=== PATIENT | male | born 1940 | race Caucasian/White ===

== ENCOUNTER 2016-09-09 19:51 | Inpatient (IN) | payer MEDICARE ==
[2016-09-09] MEDS ORDERED: ONDANSETRON HCL 4 MG/2 ML VIAL IV PUSH PRN (21:00)
[2016-09-09] MEDS ORDERED: DEXTROSE 50% IN WATER 50 ML VIAL(D50) IV PUSH PRN (21:00)
[2016-09-09] MEDS ORDERED: GLUCAGON 1 MG/ML VIAL OTHER PRN (21:00)
[2016-09-09] MEDS: INSULIN ASPART SUPPLEMENTAL SCALE SQ SCH (21:00)
--- NOTE | 2016-09-09 21:31 | HHI.HP ---
[facility] Service [facility] . Primary Care Physician not local . Admission Diagnosis Syncope, C2 fracture, intermittent third degree heart block, acute left inferior cerebellar infarct Diagnoses: (1) Syncope and collapse (2) New cerebellar infarct (3) C2 cervical fracture (4) Third degree atrioventricular block (5) Type 2 diabetes mellitus (6) Hyperlipemia (7) Hypertension Chief Complaint: Syncope Travel History International Travel<30 Days: No Contact w/Intl Traveler <30 Da: No Traveled to Known Affected Are: No History of Present Illness Mr. Doty is a pleasant 76-year-old male with a history of type 2 diabetes mellitus (blood sugars checked at home once a week range 130s to 140s), melanoma , hyperlipidemia, and hypertension who is visiting from [place] and was brought to [facility] in [place] on 09/08/2016 after experiencing a syncopal episode. The patient states he was sitting on a kitchen bar stool drinking coffee when he suddenly became diaphoretic and dizzy. He went to get a wet washcloth to put on the back of his neck and that is lasting he remembers. He was estimated to be unconscious for about 30 seconds. Prior to syncope, he denies chest pain, shortness of breath, and nausea. He also denies any weakness in his legs and arms, blurred vision, or headache. At [facility], he was diagnosed with first-degree AV block, intermittent third-degree AV block, and C2 cervical spine fracture and placed in a hard neck brace. See imaging section for full summary of radiological findings from prior hospitalization. Mr. Doty says this morning, he developed numbness on the left side of his face with inability to open his left thigh wide. 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 The patient denies any prior history of CVA, TIA, or heart disease. The patient's only reported at the time of visit is that his neck brace is not fitting well and is interfering with his ability to open and close his mouth. EKG from [facility] reviewed and shows first-degree AV block Laboratory studies from [facility] show mild elevation in white blood count at 10.1 on 09/08/2016 which was likely secondary to stress response. We'll recheck CBC in a.m. BMP not available for review - will check in a.m. - no mention of electrolyte abnormalities in any of the records. Serial Trop I were within normal parameters. Triglycerides 63, cholesterol 1:30, LDL 69, HDL 48, cholesterol/HDL ratio 2.7. . Review of Systems Except as stated in HPI: all other systems reviewed are Neg Past Family Social History Past Medical History Type 2 diabetes mellitus Hyperlipidemia Hypertension Melanoma - removed from right axillary region with negative lymph nodes. . Past Surgical History Hernia repair Bilateral cataract surgery 2016 Right axillary melanoma removal with lymph node dissection . Reported Medications Glimepiride 2 mg every morning Atorvastatin 40 mg by mouth daily Metformin 1000 mg by mouth twice a day Lisinopril 10 mg by mouth daily . Allergies: Coded Allergies: No Known Allergies (Unverified , 09/09/16) Family History Mother with melanoma Father with throat cancer . Social History Tobacco: Quit smoking 28 years ago Alcohol: Drinks an occasional beer . Physical Exam Physical Exam GENERAL: This is an elderly male wearing a hard neck collar patient, in no apparent distress. SKIN: No rashes, ecchymoses or lesions. Cool and dry. HEAD: Normocephalic. EYES: No scleral icterus. No injection or drainage. Inability to completely close left eye. ENT: Nose without bleeding, purulent drainage. NECK: Trachea midline. No JVD or lymphadenopathy. CARDIOVASCULAR: Regular rate and rhythm without murmurs, gallops, or rubs. RESPIRATORY: Clear to auscultation. Breath sounds equal bilaterally. No wheezes , rales, or rhonchi. GASTROINTESTINAL: Abdomen soft, non-tender, nondistended. No guarding. MUSCULOSKELETAL: Extremities without clubbing, cyanosis, or edema. No calf tenderness. NEUROLOGICAL: Awake and alert. Left facial droop. Muscle strength is equal bilaterally in all 4 extremities. . Imaging [facility] CT cervical spine without contrast at [facility] 09/08/2016: C2 fracture involving the right lamina with distraction of the fracture fragments by 5 mm. There is an additional fracture of C2 at the junction of the left pedicle, anterior margin of the lamina, and transverse process with distraction of approximately 5-6 mm. No evidence of canal compromise or subluxation noted. Multilevel degenerative disease and spondylosis most notably at C6 through 7. Multilevel facet arthropathy demonstrated. MRA neck for 11/23/16 at [facility]; proximal right ICA and carotid bulb stenosis with approximately 50% narrowing. The upper cervical portion of the right ICA not well visualized thought to be related to tortuosity and artifact. No significant left ICA stenosis. MRI at [facility], [place] on 09/09/2016: Acute left inferior cerebellar hemisphere infarction extending into the peduncle measuring approximately 4.3 x 3.6 cm without hemorrhagic component or significant mass effect CT head without contrast 09/08/2016: Minimal periventricular and subcortical chronic small vessel ischemic disease demonstrated. No acute intracranial abnormality demonstrated. Chest x-ray 09/08/2016: No evidence for acute cardiopulmonary process. . Assessment and Plan Problem List: (1) Syncope and collapse ICD Code: R55 Status: Acute (2) New cerebellar infarct ICD Code: I63.9 Status: Acute (3) C2 cervical fracture ICD Code: S12.100A Status: Acute (4) Third degree atrioventricular block ICD Code: I44.2 Status: Acute (5) Type 2 diabetes mellitus ICD Code: E11.9 Status: Chronic (6) Hyperlipemia ICD Code: E78.5 Status: Chronic (7) Hypertension ICD Code: I10 Status: Chronic Assessment and Plan Syncope and collapse - work up completed at [facility] in [place] Acute left inferior cerebellar hemisphere infarction extending into the peduncle - measuring approximately 4.3 x 3.6 cm without hemorrhagic component or significant mass effect per MRI at [facility], [place] on 09/09/2016 - Consult ST, PT, and OT - to prevent further debility and start rehabilitation process - Nothing by mouth pending speech therapy swallowing evaluation - Aspirin 300 mg per rectum daily for now - Consult neurology - assistance appreciated - MRA neck for 11/23/16 at [facility]; proximal right ICA and carotid bulb stenosis with approximately 50% narrowing. The upper cervical portion of the right ICA not well visualized thought to be related to tortuosity and artifact. No significant left ICA stenosis. First-degree heart block with intermittent third degree heart block - Obtain echocardiogram results from [facility], [place] - Consult cardiology - assistance appreciated - patient was seen by Dr. Correa at [facility] - Continuous cardiac telemetry C2 fracture - C2 fracture involving the right lamina with distraction of the fracture fragments by 5 mm. There is an additional fracture of C2 at the junction of the left pedicle, anterior margin of the lamina, and transverse process with distraction of approximately 5-6 mm. - Consult neurosurgery - appreciate assistance - Continue with cervical collar - consult orthopedic cast specialist to assist with possible adjustment of neck brace given patient's discomfort with current fit Type 2 diabetes mellitus - Hold glimepiride and metformin for now - Accu-Cheks before meals and at bedtime with low-dose NovoLog sliding scale coverage - Hypoglycemia protocol ordered - Follow trends and blood glucose levels and adjust treatment as needed Hyperlipidemia - Continue atorvastatin Hypertension - Continue lisinopril - Monitor blood pressure trends - Adjust treatment as needed DVT prophylaxis - SCDs Written by Lillian aKpadia, acting as scribe for Dr. Ernandez on 09/09/16 at 21:00. patient was seen and examined today. transfer from [facility] because of cervical spine fracture. initially presented to the hospital after he passed out. was found to have acute CVA along with possible third degree AV block. will consult cardiology, neurology and neurosurgery. will consult PT/ ST. rest of assessment and plan as noted above. . Discussed Condition With Dr. Mcdonnell, RN, and patient . Physician Certification 2 Midnight Certification Type: Admission for Inpatient Services Order for Inpatient Services The services are ordered in accordance with Medicare regulations or non- Medicare payer requirements, as applicable. In the case of services not specified as inpatient-only, they are appropriately provided as inpatient services in accordance with the 2-midnight benchmark. Estimated LOS (days): 3 days is the estimated time the patient will need to remain in the hospital, assuming treatment plan goals are met and no additional complications. Post-Hospital Plan: Not yet determined Problem Qualifiers (1) Type 2 diabetes mellitus: (2) Hypertension: Qualified Code: I10 - Essential hypertension Lillian Kapadia Sep 09, 2016 21:31 Paige Ernandez MD Sep 09, 2016 22:24
[2016-09-09 22:00] VITALS: BP 162/91; PULSE 72; RESP 20; TEMP 98.8; O2SAT 96
[2016-09-09 23:00] VITALS: PULSE 64
[2016-09-10] VITALS (27 sets, daily range): BP systolic 150–208; BP diastolic 82–99; PULSE 40–84; RESP 16–28; TEMP 97.7–98.9; O2SAT 94–97
[2016-09-10 06:58] LABS: AUTOMATED NEUTROPHIL # 7.8 TH/MM3 (1.8-7.7); BASOPHIL # 0.1 TH/MM3 (0-0.2); BASOPHIL % 0.7 % (0.0-2.0); EOSINOPHIL # 0.1 TH/MM3 (0-0.4); EOSINOPHIL % 0.8 % (0.0-4.0); HEMATOCRIT 39.2 % (39.0-51.0); HEMO FLAGS DIFF FINAL; LYMPH % 12.9 % (9.0-44.0); LYMPHOCYTE # 1.3 TH/MM3 (1.0-4.8); MEAN CORPUSCULAR HEMOGLOBIN 29.5 PG (27.0-34.0); MEAN CORPUSCULAR HGB CONC 33.1 % (32.0-36.0); MONO % 9.1 % (0.0-8.0); NEUT % 76.5 % (16.0-70.0); PLATELET COUNT 225 TH/MM3 (150-450); RED CELL DISTRIBUTION WIDTH 14.3 % (11.6-17.2); WHITE BLOOD COUNT 10.2 TH/MM3 (4.0-11.0)
[2016-09-10 07:19] LABS: BICARBONATE 27.4 MEQ/L (21.0-32.0); POTASSIUM 4.2 MEQ/L (3.5-5.1)
[2016-09-10] MEDS: LISINOPRIL 10 MG TAB PO SCH (09:00)
[2016-09-10] MEDS ORDERED: ASPIRIN 300 MG SUPP RECTAL SCH (09:00)
--- NOTE | 2016-09-10 09:06 | PD.CONS ---
HPI Service CV Consult Requested By Reason for Consult arrhythmia Primary Care Physician Non-Staff History of Present Illness Here with HTN and hyperlipidemia admitted for syncope and stroke. He is here visiting from [place]. He was having a cup of coffee on Tuesday at his vacation home when he suddenly became diaphoretic and lightheaded. He decide to get a cold wash cloth for his neck and upon trying to accomplish this he had a syncopal episode. EMS was activated and he was taken to [facility]. There, per EHR, monitoring revealed 1st degree AVB and intermittent CHB. Then he tells me that he had visual disturbances Tuesday night in the hospital and present with stroke. He has no previous cardiac history. Last January he had an arrhythmia after a cataract operation. He states his heart rate was very slow and they gave him something for it and told him it was likely just a blip. He denies chest pain, shortness of breath or palpitations. Telemetry reveals 2nd degree Mobitz 1. (Byron Jean) Consult Requested By [facility] to resume care Patient of Dr. Sunny ngo PPM (Rivera Najera MD) Review of Systems Consitutional: DENIES: Fatigue, Fever, Chills, Weight gain, Weight loss Eyes: DENIES: Amaurosis Fugax, Change in vision HEENT: DENIES: Lightheadedness, Change in hearing Respiratory: DENIES: See HPI, Cough, Snoring, Shortness of breath, Wheezing, Sputum production Cardiovascular: COMPLAINS OF: See HPI Gastrointestinal: DENIES: Nausea, Vomiting, Change in bowel habits, Reflux, Bloody stools, Melena Genitourinary: DENIES: Urinary incontinence, Difficulty voiding Integumentary: DENIES: Rash Neurologic: DENIES: Tingling or numbness, Memory problems, Poor Balance, Stroke symptoms Musculoskeletal: DENIES: Joint pain, Muscle pain, Limited range of motion, Back pain Psychiatric: DENIES: Anxiety, Depression, Sleep disturbances Hematologic: DENIES: Bruising tendencies, Bleeding tendencies Endocrine: DENIES: Weight gain, Weight loss, Thyroid disease (Byron Jean ) Past Family Social History Allergies: Coded Allergies: No Known Allergies (Unverified , 09/09/16) Past Medical History Type 2 diabetes mellitus Hyperlipidemia Hypertension Melanoma - removed from right axillary region with negative lymph nodes. Past Surgical History Hernia repair Bilateral cataract surgery 2016 Right axillary melanoma removal with lymph node dissection Reported Medications Glimepiride 2 mg every morning Atorvastatin 40 mg by mouth daily Metformin 1000 mg by mouth twice a day Lisinopril 10 mg by mouth daily Active Ordered Medications Current Medications Medications (Trade) Dose Ordered Sig/Talha Route Start Time Stop Time Status Last Admin (D50w (Vial) Inj) 25 ml UNSCH PRN IV PUSH 09/09/16 21:00 (Glucagon Inj) 1 mg UNSCH PRN OTHER 09/09/16 21:00 (Aspirin Supp) 300 mg DAILY RECTAL 09/10/16 09:00 (Zofran Inj) 4 mg Q8HR PRN IV PUSH 09/09/16 21:00 (Prinivil) 10 mg DAILY PO 09/10/16 09:00 (Lipitor) 40 mg HS PO 09/10/16 21:00 Family History noncontributory Social History Tobacco: Quit smoking 28 years ago Alcohol: Drinks an occasional beer (Byron Jean) Physical Exam Vital Signs Vital Signs Date Time Temp Pulse Resp B/P Pulse Ox O2 Delivery O2 Flow Rate FiO2 09/10/16 06:07 62 09/10/16 05:00 73 09/10/16 04:00 74 09/10/16 03:18 98.9 63 18 160/90 94 09/10/16 03:00 64 09/10/16 02:35 40 09/10/16 02:00 64 09/10/16 01:00 64 09/10/16 00:00 64 09/10/16 00:00 98.7 62 18 161/84 95 09/09/16 23:00 64 09/09/16 22:00 98.8 72 20 162/91 96 09/09/16 22:00 72 Physical Exam GENERAL: Well-nourished, well-developed patient in no apparent distress. NECK: No JVD. No carotid bruit. CARDIOVASCULAR: Regular rate and rhythm. S1/S2 no murmur, rub, or gallop. RESPIRATORY: No accessory muscle use. Clear to auscultation. Breath sounds equal bilaterally. GASTROINTESTINAL: Abdomen soft, non-tender, nondistended. MUSCULOSKELETAL: Extremities without clubbing, cyanosis, or edema. Laboratory Laboratory Tests Test 09/10/16 05:35 White Blood Count 10.2 Red Blood Count 4.40 Hemoglobin 13.0 Hematocrit 39.2 Mean Corpuscular Volume 89.0 Mean Corpuscular Hemoglobin 29.5 Mean Corpuscular Hemoglobin 33.1 Concent Red Cell Distribution Width 14.3 Platelet Count 225 Mean Platelet Volume 9.1 Neutrophils (%) (Auto) 76.5 Lymphocytes (%) (Auto) 12.9 Monocytes (%) (Auto) 9.1 Eosinophils (%) (Auto) 0.8 Basophils (%) (Auto) 0.7 Neutrophils # (Auto) 7.8 Lymphocytes # (Auto) 1.3 Monocytes # (Auto) 0.9 Eosinophils # (Auto) 0.1 Basophils # (Auto) 0.1 CBC Comment DIFF FINAL Differential Comment Sodium Level 141 Potassium Level 4.2 Chloride Level 107 Carbon Dioxide Level 27.4 Anion Gap 7 Blood Urea Nitrogen 16 Creatinine 0.94 Estimat Glomerular Filtration 78 Rate Random Glucose 130 Calcium Level 8.9 (Byron Jean) Result Diagram: 09/10/16 0535 09/10/16 0535 Assessment and Plan Problem List: (1) Syncope and collapse (2) Hyperlipemia (3) Hypertension (4) New cerebellar infarct Assessment and Plan With his arrhythmia and stroke we will need to r/o cardioembolic source. 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 We will continue to monitor telemetry and await 2D echo results from [place]. We will allow permissive HTN for now. Avoid AVN blocking agent and heart rate lowering drugs. Further recommendations per Dr. Najera. (Byron Jean) Problem Qualifiers (1) Hypertension: Qualified Code: I10 - Essential hypertension Byron Jean Sep 10, 2016 09:06 Rivera Najera MD Sep 10, 2016 12:46
[2016-09-10] MEDS ORDERED: IOHEXOL 350 MG/ML 10 ML VIAL (for RAD DIAG) IV ONE (11:18)
--- NOTE | 2016-09-10 11:18 | RADRPT ---
EXAM DATE/TIME: 09/10/2016 10:54 [facility] COMPARISON: No previous studies available for comparison. INDICATIONS : Cerebellar stroke follow up. RADIATION DOSE: 69.15 CTDIvol (mGy) MEDICAL HISTORY : None SURGICAL HISTORY : None. ENCOUNTER: Initial ACUITY: 1 day PAIN SCALE: 0/10 LOCATION: cranial TECHNIQUE: Multiple contiguous axial images were obtained of the head. Using automated exposure control and adj ustment of the mA and/or kV according to patient size, radiation dose was kept as low as reasonably a chievable to obtain optimal diagnostic quality images. FINDINGS: CEREBRUM: The ventricles are normal for age. No evidence of midline shift, mass lesion, hemorrhage or acute in farction. No extra-axial fluid collections are seen. POSTERIOR FOSSA: The examination demonstrates a moderate-sized area of infarct involving the left cerebellar hemispher e. This is encephalomalacic and appears somewhat old. There is no acute hemorrhage. EXTRACRANIAL: The visualized portion of the orbits is intact. SKULL: The calvaria is intact. No evidence of skull fracture. CONCLUSION: 1. Encephalomalacic infarct in the left cerebellar hemisphere. 2. No acute intracranial hemorrhage identified. Kumar Briceño MD on September 10, 2016 at 11:15 Board Certified Radiologist. This report was verified electronically.
--- NOTE | 2016-09-10 12:05 | RADRPT ---
EXAM DATE/TIME: 09/10/2016 11:05 [facility] COMPARISON: CT BRAIN W/O CONTRAST, September 10, 2016, 10:54. INDICATIONS : Fall, cervical fracture. RADIATION DOSE: ; Reconstructed from previous dataset MEDICAL HISTORY : None SURGICAL HISTORY : None. ENCOUNTER: Initial ACUITY: 1 day PAIN SCALE: 5/10 LOCATION: neck TECHNIQUE: Volumetric scanning of the cervical spine was performed. Multiplanar reconstructions in the sagittal, coronal and oblique axial planes were performed. Using automated exposure control and adjustment o f the mA and/or kV according to patient size, radiation dose was kept as low as reasonably achievable to obtain optimal diagnostic quality images. FINDINGS: Thin section axial imaging of the cervical spine was performed. The sagittal and coronal reformats de monstrate adequate alignment of the cervical vertebral bodies. The patient's known fracture of the la kristian of C2 is again visualized. Sagittal and coronal imaging demonstrate adequate alignment of the vertebral bodies. C1/2: The dens is intact. The examination does demonstrate fracture of the lamina posteriorly on both sides . There is only minimal displacement. The vertebral body itself appears intact. The C2/3: The thecal space is adequate. The foramina are adequate. Again noted is a fracture posteriorly of the lamina of C2. There is mild facet arthritis bilaterally. C3/4: There is moderate facet arthritis on the right. There is mild facet arthritis on the left. There is m ild bony foraminal narrowing on the right. The foramina on the left is adequate. The residual thecal space is adequate. C4/5: There is severe facet arthritis bilaterally. This is more significant on the right than the left. Thi s results in moderate narrowing of the neural foramina on the right. There is mild foraminal narrowin g on the left. Residual thecal space is adequate. C5/6: There is a degenerated disc with mild osteophytic ridging. There is facet arthritis bilaterally. The thecal space and foramina appear adequate. C6/7: There is a degenerated disc with osteophytic ridging from the vertebral endplates. The thecal space a nd foramina are adequate. The facet joints demonstrate mild arthritic changes. C7/T1: No significant abnormality is identified. CONCLUSION: 1. The examination demonstrates a fracture of both sides of the lamina of C2. The vertebral body itse lf appears intact. 2. CT angiography to assess the left vertebral artery is pending. Kumar Briceño MD on September 10, 2016 at 11:58 Board Certified Radiologist. This report was verified electronically.
[2016-09-10] MEDS: INSULIN ASPART SUPPLEMENTAL SCALE SQ SCH ×4 (12:19→21:00)
--- NOTE | 2016-09-10 13:09 | RADRPT ---
EXAM DATE/TIME: 09/10/2016 10:57 [facility] COMPARISON: CT BRAIN W/O CONTRAST, September 10, 2016, 10:54. INDICATIONS : Cerebellar stroke, cervical fracture. Evaluate for vertebral artery injury. IV CONTRAST: 100 cc Omnipaque 350 (iohexol) IV RADIATION DOSE: 19.56 CTDIvol (mGy) MEDICAL HISTORY : None SURGICAL HISTORY : None. ENCOUNTER: Initial ACUITY: 1 day PAIN SCALE: 0/10 LOCATION: Bilateral neck Elevated flow velocities and ICA/CCA ratios have been found to correlate with increased degrees of vessel stenosis, calculated as percentage of diameter relative to a normal segment of distal ICA/CCA. TECHNIQUE: Volumetric scanning was performed using a multirow detector CT scanner. The data was post processed with a variety of visualization algorithms including full-volume maximum intensity projection, multip lanar sliding thin-slab reformation, curved-planar reformation, and surface-rendering techniques. Us ing automated exposure control and adjustment of the mA and/or kV according to patient size, radiatio n dose was kept as low as reasonably achievable to obtain optimal diagnostic quality images. FINDINGS: AORTIC ARCH: There is a three-vessel origin of the great vessels from the aorta. No evidence of ostial narrowing. RIGHT CAROTID: The common carotid is widely patent. There is mild atherosclerotic plaquing at the bifurcation. This results in an area of mild stenosis of the origin of the right internal carotid estimated to be in th e range of 10-15% by NASCET criteria. The more cephalad portion of internal carotid is widely patent. LEFT CAROTID: The common carotid is widely patent. There is calcified atherosclerotic plaque at the bifurcation. Th is results in only minimal stenosis of the origin of the left internal carotid. The more cephalad por tion of left internal carotid is widely patent. VERTEBRALS: The examination demonstrates a focal area of intimal contusion and a small amount of intraluminal thr ombus within the left vertebral artery at the level of the patient's C2 lamina fracture. The more cep halad portions of vertebral artery demonstrate thrombus within it.. There is a subacute infarct in th e left cerebellar hemisphere. The right vertebral artery is widely patent. The basilar is widely dang nt.CONCLUSION: 1. There is focal intimal contusion and a small amount of thrombus within the left vertebral artery a t the level of the patient's C2 lamina fracture. The more cephalad portion of left vertebral just kinjal or to its junction with the basilar demonstrates thrombus within it as well as no definite dissection is seen. There is infarct in the left cerebellar hemisphere. 2. The right vertebral and basilar are patent. 3. Atherosclerotic plaquing but no hemodynamically significant stenosis evident within the carotid ci rculation. Kumar Briceño MD on September 10, 2016 at 13:01 Board Certified Radiologist. This report was verified electronically.
[2016-09-10 13:17] LABS: HDL CHOLESTEROL 48.8 MG/DL (40.0-60.0)
[2016-09-10] MEDS: niCARdipine 25 MG/NS 250 ML Vial2Bag or IV room IV SCH ×4 (13:21→23:19)
--- NOTE | 2016-09-10 17:33 | MB ---
cc: KRISTEN SUNG M.D. DATE OF CONSULTATION 09/10/16 DATE OF 1940 AGE [id number]. REASON FOR CONSULTATION Stroke. HISTORY OF PRESENT ILLNESS The patient is a pleasant 76-year-old man visiting from [place] on vacation with a diabetic history, melanoma, hyperlipidemia, hypertension, was brought into initially [facility] on 09/08/2016 after he had what was noted to be a syncope per chart. He was apparently sitting in the kitchen, drinking coffee when he became diaphoretic and dizzy. Apparently went to put a washcloth on the back of his neck and that is the last thing he can remember. He was unresponsive for less than a minute per chart. Prior to that he had no prodromal symptoms. At the hospital he was diagnosed with a first-degree AV block intermittent third degree block. CT spine fracture, placed in a hard neck brace and transferred. The patient just had a follow-up CT of the brain as well as CT cervical spine. Studies that were performed at [facility] apparently he had a CT spine that showed the C2 fracture. Also MRA of the neck showed proximal ICA and carotid bulb stenosis about 50% narrowing. Upper cervical portion of the right ICA was not well seen, tortuous and artifactual. No significant left ICA stenosis. MRI at the same time showed acute left inferior cerebellar hemisphere infarct, 4.3 x 3.6 without hemorrhage or any mass effect. CT of the head did not show anything acute. Chest x-ray no cardiopulmonary disease. PAST MEDICAL HISTORY He has a past medical history of diabetes, hypertension, hyperlipidemia, melanoma, cataract surgery, hernia repair. The melanoma was in the right axillary area with node dissection. MEDICATIONS Home medicines are: 1. Glimepiride. 2. Atorvastatin. 3. Metformin. 4. Lisinopril. He does not take aspirin. ALLERGIES None reported. FAMILY HISTORY Melanoma in the mother. Throat cancer in the father. SOCIAL HISTORY He quit smoking 28 years ago. Drinks beer on occasion. PHYSICAL EXAMINATION VITAL SIGNS: On exam vitals temperature is 97.7, pulse 59, respiratory rate 18, blood pressure 208/87, prior to that 190/99. NECK: His neck is supple. I do not appreciate any bruits. HEART: Currently is regular. NEURO: He is awake and alert. He is dysarthric. He has a left ptosis, diplopia of the left eye. End-gaze nystagmus of the left eye. He has his left eye covered. He has a left facial asymmetry. He has a dysmetria on the left side on [id number] and [id number]. Left toe is upgoing. DTRs are 1 to 2+, right side is intact. Sensory is normal. Gait is withheld. LABORATORY DATA His labs are reviewed. IMAGING STUDIES He just had a CT of the head that shows encephalomalacia or infarct in the left cerebellar hemisphere and CT cervical spine shows fracture of both sides of the lamina of C2. The vertebral body itself appears intact. He is pending a CTA of the carotid to look at the left vertebral artery, rule out dissection. IMPRESSION 1. C2 fracture. 2. Left cerebellar infarct. RECOMMENDATIONS CTA of the carotids, look for dissection of the vertebral artery. Maintain permissible hypertension, treat for systolic over 200, diastolic over 100 without lowering him too low to have him have adequate perfusion pressure. Maintain him on aspirin. Speech PT, OT, check a lipid panel, although we want PT involved I would not get him out of bed until he is cleared by neurosurgery. Bedside PT can be done. Lovenox for DVT prophylaxis. SCDs and further recommendations neurologically will be made accordingly. MD DINORA Valencia/MARK /12:40 PM /5:19 PM
--- NOTE | 2016-09-10 18:45 | MB ---
cc: KUMAR HU DATE OF CONSULTATION 09/10/16 REASON FOR CONSULTATION: C2 fractures. PRESENT ILLNESS A 76-year-old gentleman who had a syncopal episode two days ago and fell and hit his head. He was taken to [facility] emergency room and admitted. He was found to have C2 fractures and was placed in a collar and was also bradycardic with from what the twisting press operator informs me from [facility] a third degree block and was contemplating needing pacemaker at some point. He had developed nystagmus and left-sided facial droop yesterday morning along with unsteadiness in his gait and neurology evaluated the patient and workup with an MRI scan revealed left cerebellar hemisphere infarct. For some reason, the patient was not accepted by the neurosurgery staff at [facility] and he was sent to [facility] for further management. He relates neck discomfort, but with the collar this is better. Denies any numbness or paresthesias in the face, arms or legs. He has had a left facial droop along with a left eye droop and feels lightheaded and unsteady when attempting to walk. Denies any previous syncopal episodes or any cardiac issues. Workup included a head CT scan this morning that reveals a left hemisphere multifocal cerebellar infarct with no edema or compression of the fourth ventricle or any associated hydrocephalus. CT of the cervical spine reveals a fracture involving the left facet/pedicle on the right lamina with maintained alignment of C1, C2, C3 with no subluxation noted. CT angiogram of the neck to assess for any vertebral artery dissection or thrombus is currently pending. PAST MEDICAL HISTORY 1. Diabetes mellitus, 2. Hypertension, 3. Hyperlipidemia, 4. Melanoma from resection of the right axillary with negative lymph nodes, 5. Bilateral cataract surgery in 2016, 6. Herniorrhaphy MEDICATIONS Prior to admission 1. Atorvastatin. 2. Metformin. 3. Lisinopril. 4. Glyburide 5. Currently been started on aspirin 300 mg a day. 6. He was hypertensive with a systolic blood pressure 208 and has been started on Cardene drip to regulate the blood pressure to keep it less than 180-190 systolic. ALLERGIES NO KNOWN DRUG ALLERGIES. SOCIAL HISTORY He is . His is here with him. They are on vacation from [place], scheduled to go back home this weekend originally. Quit smoking 28 years ago. Drinks alcohol on occasional basis. REVIEW OF SYSTEMS Complains of double vision when looking straight, complains of left-sided facial droop, complains of neck pain. Denies any numbness or paresthesias in the upper or lower extremities or the face. Complains of unsteadiness in his gait. No incontinence. No chest pain or shortness of breath. No abdominal pain. No fevers or chills. No recent weight gain or weight loss. No history of easy bleeding or bruising. No prior history of passing out spells or syncopal episodes prior to the current one. LABORATORY DATA White blood cell count 10.2, hemoglobin 13, platelet count 225. Sodium 141, potassium 4.2, BUN 16, creatinine 0.94, glucose 130. PHYSICAL EXAMINATION VITAL SIGNS: Temperature 97.7, pulse 59, respiratory rate 18, blood pressure currently 190/89 on Cardene drip. HEAD: No [employer] or raccoon sign. NECK: Maintained in a Cantwell J collar. CHEST: Clear bilaterally HEART: Regular rate and rhythm, normal S1, S2. ABDOMEN: Soft, nontender. EXTREMITIES: No cyanosis or edema. NEUROLOGIC: He is awake, alert. He has a left lower motor neuron seventh nerve paresis. Pupils are equal, reactive. He has nystagmus, especially on left lateral gaze. Tongue is midline. He moves upper and lower extremities with 5/5 strength. Negative Babinski. He does have dysmetria left-sided. Light touch sensation intact. Speech is very dysarthric. IMPRESSION 1. C2 left facet/pedicle fracture along with a right laminar fracture with maintained alignment. 2. Left cerebellar hemisphere infarct, rule out any vertebral artery dissection or stenosis. 3. Bradycardia likely the source of his syncopal episode and fall. 4. Diabetes mellitus. 5. Unregulated hypertension. PLAN The patient will be transferred to the surgical intensive care unit for close neurologic hemodynamic monitoring and regulation of his hypertension. Regarding the cervical C2 fractures, this will heal without requiring any intervention with a cervical collar used for the next 3-4 months. RECOMMENDATIONS Cervical spine x-rays every six weeks to assess for fracture healing and cervical spine alignment. I will defer management of the cerebellar infarct and any associated vertebral artery involvement to the neurology service. I have discussed with Dr. Burks from neurology and she informs me that there is a left vertebral stenosis or dissection noted and she will initiate full anticoagulation initially with heparin drip. Speech therapy evaluation for swallowing and physical and occupational therapy to work on rehabilitation given his unsteadiness in his gait. The informs me that once he is medically stable then she wants to take him back home in [place] where they will follow up with a local neurosurgeon and other specialists as needed. MD PAPA Covarrubias/ /1:28 PM /6:17 PM
[2016-09-10] MEDS: ACETAMINOPHEN 325 MG TAB PO PRN (19:17)
[2016-09-10] MEDS: ATORVASTATIN 40 MG TAB PO SCH (20:30)
[2016-09-10] MEDS ORDERED: SODIUM CHLOR 0.9% 250 ML INJ 250 ML ONE (22:22)
[2016-09-11] VITALS (23 sets, daily range): BP systolic 136–183; BP diastolic 75–98; PULSE 57–88; RESP 16–20; TEMP 97.8–98; O2SAT 95–98
--- NOTE | 2016-09-11 00:01 | HHI.PR ---
Subjective Remarks Patient seen at 1635. Doing OK, overall pain controlled. Objective Vitals Vital Signs Date Time Temp Pulse Resp B/P Pulse Ox O2 Delivery O2 Flow Rate FiO2 09/10/16 22:00 70 09/10/16 21:00 72 09/10/16 20:00 72 09/10/16 20:00 97.7 72 28 150/82 96 09/10/16 19:00 78 09/10/16 18:00 79 09/10/16 17:00 74 09/10/16 16:00 69 09/10/16 16:00 98.7 69 21 161/84 95 09/10/16 15:00 64 09/10/16 14:00 60 09/10/16 13:00 74 09/10/16 12:00 59 09/10/16 12:00 97.7 59 18 208/87 95 09/10/16 11:00 59 09/10/16 10:00 74 09/10/16 09:00 84 09/10/16 08:15 98.5 74 16 190/99 97 09/10/16 08:00 64 09/10/16 07:00 66 09/10/16 06:07 62 09/10/16 05:00 73 09/10/16 04:00 74 09/10/16 03:18 98.9 63 18 160/90 94 09/10/16 03:00 64 09/10/16 02:35 40 09/10/16 02:00 64 09/10/16 01:00 64 09/10/16 00:00 64 09/10/16 00:00 98.7 62 18 161/84 95 I/O 09/09/16 09/09/16 09/09/16 09/10/16 09/10/16 09/10/16 06:59 14:59 22:59 06:59 14:59 22:59 Intake Total 0 ml 168 ml Output Total 0 ml 575 ml Balance 0 ml -407 ml Intake Oral 0 ml 40 ml IV Total 128 ml Output Urine Total 0 ml 575 ml # Bowel Movements 0 0 Result Diagram: 09/10/16 0535 09/10/16 0535 Objective Remarks GENERAL: This is a well-nourished, well-developed patient, in no apparent distress. NECK: C collar CARDIOVASCULAR: Regular rate and rhythm RESPIRATORY: Clear to auscultation. Breath sounds equal bilaterally. No wheezes , rales, or rhonchi. GASTROINTESTINAL: Abdomen soft, non-tender, nondistended. Normal active bowel sounds MUSCULOSKELETAL: Extremities without clubbing, cyanosis, or edema. NEURO: Alert & Oriented x3 to person, place, time. Moves all ext x4 with 5/5 BUE, BLE A/P Problem List: (1) Syncope and collapse ICD Code: R55 Status: Acute (2) New cerebellar infarct ICD Code: I63.9 Status: Acute (3) C2 cervical fracture ICD Code: S12.100A Status: Acute (4) Third degree atrioventricular block ICD Code: I44.2 Status: Acute (5) Type 2 diabetes mellitus ICD Code: E11.9 Status: Chronic (6) Hyperlipemia ICD Code: E78.5 Status: Chronic (7) Hypertension ICD Code: I10 Status: Chronic Assessment and Plan Syncope and collapse - work up completed at [facility] in [facility], and transfered to [place] by for Neurosurgery evaluation of cervical fracture Acute left inferior cerebellar hemisphere infarction extending into the peduncle - measuring approximately 4.3 x 3.6 cm without hemorrhagic component or significant mass effect per MRI at [facility] on 09/09/2016 - Consult ST, PT, and OT - to prevent further debility and start rehabilitation process - Aspirin 300 mg per rectum daily for now - Further recommendations per neurology, check FLP - MRA neck for 11/23/16 at [facility]; proximal right ICA and carotid bulb stenosis with approximately 50% narrowing. The upper cervical portion of the right ICA not well visualized thought to be related to tortuosity and artifact. No significant left ICA stenosis. First-degree heart block with intermittent third degree heart block - Obtain echocardiogram results from [facility] - Consult cardiology - assistance appreciated - patient was seen by Dr. Correa at [facility] - Continuous cardiac telemetry, further recommendations per Cardiology C2 fracture - C2 fracture involving the right lamina with distraction of the fracture fragments by 5 mm. There is an additional fracture of C2 at the junction of the left pedicle, anterior margin of the lamina, and transverse process with distraction of approximately 5-6 mm. - Appreciate Neurosurgery consult and recommendations - Continue with cervical collar - consult rn orthopaedic to assist with possible adjustment of neck brace given patient's discomfort with current fit Type 2 diabetes mellitus - Hold glimepiride and metformin for now - Accu-Cheks before meals and at bedtime with low-dose NovoLog sliding scale coverage - Hypoglycemia protocol ordered - Follow trends and blood glucose levels and adjust treatment as needed Hyperlipidemia - Continue atorvastatin, check FLP Hypertension, accelerated - Continue lisinopril, Nicardipine drip started by Neurosurgery - Monitor blood pressure trends - Adjust treatment as needed DVT prophylaxis - SCDs Problem Qualifiers (1) Type 2 diabetes mellitus: (2) Hypertension: Qualified Code: I10 - Essential hypertension Janna Mcdonnell MD Sep 11, 2016 00:01
[2016-09-11] MEDS: INSULIN ASPART SUPPLEMENTAL SCALE SQ SCH ×4 (06:55→21:00)
[2016-09-11] MEDS: LISINOPRIL 10 MG TAB PO SCH (08:40)
--- NOTE | 2016-09-11 09:47 | HHI.PR ---
Subjective Remarks Patient continues to be on bedrest. Denies having fever, chills, chest pain, shortness of breath, abdominal pain. Patient in no pain at all. No bowel movement. Objective Vitals Vital Signs Date Time Temp Pulse Resp B/P Pulse Ox O2 Delivery O2 Flow Rate FiO2 09/11/16 09:00 74 09/11/16 08:00 59 09/11/16 08:00 97.8 76 20 171/98 09/11/16 07:00 71 09/11/16 06:00 69 09/11/16 05:00 66 09/11/16 04:00 80 09/11/16 04:00 97.8 80 16 149/77 98 09/11/16 03:00 68 09/11/16 02:00 72 09/11/16 01:00 66 09/11/16 00:00 68 09/11/16 00:00 97.8 68 19 136/75 98 09/10/16 23:00 68 09/10/16 22:00 70 09/10/16 21:00 72 09/10/16 20:00 72 09/10/16 20:00 97.7 72 28 150/82 96 09/10/16 19:00 78 09/10/16 18:00 79 09/10/16 17:00 74 09/10/16 16:00 69 09/10/16 16:00 98.7 69 21 161/84 95 09/10/16 15:00 64 09/10/16 14:00 60 09/10/16 13:00 74 09/10/16 12:00 59 09/10/16 12:00 97.7 59 18 208/87 95 09/10/16 11:00 59 09/10/16 10:00 74 I/O 09/10/16 09/10/16 09/10/16 09/11/16 09/11/16 09/11/16 07:00 15:00 23:00 07:00 15:00 23:00 Intake Total 0 ml 168 ml 91 ml Output Total 0 ml 575 ml 400 ml Balance 0 ml -407 ml -309 ml Intake Oral 0 ml 40 ml 40 ml IV Total 128 ml 51 ml Output Urine Total 0 ml 575 ml 400 ml # Bowel Movements 0 0 0 Result Diagram: 09/10/16 0535 09/10/16 0535 Objective Remarks GENERAL: This is a well-nourished, well-developed patient, in no apparent distress. NECK: C collar in place. CARDIOVASCULAR: Regular rate and rhythm RESPIRATORY: Clear to auscultation. Breath sounds equal bilaterally. No wheezes , rales, or rhonchi. GASTROINTESTINAL: Abdomen soft, non-tender, nondistended. Normal active bowel sounds MUSCULOSKELETAL: Extremities without clubbing, cyanosis, or edema. NEURO: Alert & Oriented x3 to person, place, time. Moves all ext x4 with 5/5 steng in extremities x 4. Normal cerebellar testing. Urinary Catheter: Yes Assessment to: Continue Vascular Central Line Catheter: No A/P Problem List: (1) Syncope and collapse ICD Code: R55 Status: Acute (2) New cerebellar infarct ICD Code: I63.9 Status: Acute (3) C2 cervical fracture ICD Code: S12.100A Status: Acute (4) Third degree atrioventricular block ICD Code: I44.2 Status: Acute (5) Type 2 diabetes mellitus ICD Code: E11.9 Status: Chronic (6) Hyperlipemia ICD Code: E78.5 Status: Chronic (7) Hypertension ICD Code: I10 Status: Chronic Assessment and Plan Patient is 76 yo M, on vacation from [place], transferred from [facility] after syncopal episode, found to have first degree AV block, intermittent third-degree AV block, C2 cervical spine fracture. Syncope and collapse - work up completed at [facility] in [facility], and transferred to [place] by for Neurosurgery evaluation of cervical fracture Acute left inferior cerebellar hemisphere infarction extending into the peduncle. Measuring approximately 4.3 x 3.6 cm without hemorrhagic component or significant mass effect per MRI at [facility] on 09/09/2016 - Consult ST, PT, and OT - Aspirin 325 mg daily - Further recommendations per neurology: continued permissible hypertension to maintain perfusion - MRA neck for 11/23/16 at [facility]; proximal right ICA and carotid bulb stenosis with approximately 50% narrowing. The upper cervical portion of the right ICA not well visualized thought to be related to tortuosity and artifact. No significant left ICA stenosis. First-degree heart block with intermittent third degree heart block - Obtain echocardiogram results from [facility] - Consult cardiology - assistance appreciated - patient was seen by Dr. Correa at [facility] - Continuous cardiac telemetry, further recommendations per Cardiology C2 fracture - C2 fracture involving the right lamina with distraction of the fracture fragments by 5 mm. There is an additional fracture of C2 at the junction of the left pedicle, anterior margin of the lamina, and transverse process with distraction of approximately 5-6 mm. - Appreciate Neurosurgery consult and recommendations - Continue with cervical collar - Per NS, patient will require C-spine x-rays every 6 weeks to monitor healing Type 2 diabetes mellitus - Hold glimepiride and metformin for now - Accu-Cheks before meals and at bedtime with low-dose NovoLog sliding scale coverage - No supplemental insulin requirement over past 24 hours, well-controlled - Follow trends and blood glucose levels and adjust treatment as needed versus discontinue Accu-Cheks Hyperlipidemia. Total cholesterol 134, LDL 65; well-controlled hyperlipidemia - Continue atorvastatin. Hypertension, permissive hypertension per neurology - Continue lisinopril, Nicardipine drip started by Neurosurgery - Monitor blood pressure trends -Blood pressure control per neurology DVT prophylaxis - SCDs, Lovenox Diet: passed swallow eval, diabetic diet Pericolace 2 tabs hs Discharge Planning pending neurology clearance; would like to take patient back to [place] upon dc Problem Qualifiers (1) Type 2 diabetes mellitus: (2) Hypertension: Qualified Code: I10 - Essential hypertension Lorie Bradley MD Sep 11, 2016 09:47
[2016-09-11] MEDS: ASPIRIN 325 MG TAB PO SCH (10:24)
[2016-09-11] MEDS: ATORVASTATIN 40 MG TAB PO SCH (20:22)
[2016-09-11] MEDS ORDERED: DOCUSATE SODIUM 50 MG/SENNA 8.6 MG TAB PO SCH (21:00)
--- NOTE | 2016-09-11 23:49 | HHI.NSPN ---
History Chief Complaint: I want to shave my sanchez Interval History 76-year-old male with recent syncopal episode and collapse resulting in C2 fracture with small amount of thrombus unilaterally in the vertebral artery at the C2 fracture site was secondary cerebellar CVA. History of hypertension, third-degree AV block Exam Results Vital Signs Date Time Temp Pulse Resp B/P Pulse Ox O2 Delivery O2 Flow Rate FiO2 09/11/16 23:00 64 09/11/16 20:00 97.8 18 162/94 96 Intake and Output 09/10/16 09/10/16 09/11/16 08:00 16:00 00:00 Intake Total 0 ml 168 ml Output Total 0 ml 575 ml Balance 0 ml -407 ml Physical Examination Awake and alert Oriented and conversant May have diminished judgment and insight Answer simple questions appropriately and follows simple commands well Left facial paresis Disconjugate gaze with complaint of diplopia Patch over the left eye Cervical collar in place No significant neck tenderness Appears to have diminished coordination left lower extremity Lab, Micro, Other Results Last Impressions Neck CTA 09/10/16 0000 Signed Impressions: Service Date/Time: Saturday, September 10, 2016 10:57 - CONCLUSION: 1. There is focal intimal contusion and a small amount of thrombus within the left vertebral artery at the level of the patient's C2 lamina fracture. The more cephalad portion of left vertebral just prior to its junction with the basilar demonstrates thrombus within it as well as no definite dissection is seen. There is infarct in the left cerebellar hemisphere. 2. The right vertebral and basilar are patent. 3. Atherosclerotic plaquing but no hemodynamically significant stenosis evident within the carotid circulation. Kumar Briceño MD Head CT 09/10/16 0000 Signed Impressions: Service Date/Time: Saturday, September 10, 2016 10:54 - CONCLUSION: 1. Encephalomalacic infarct in the left cerebellar hemisphere. 2. No acute intracranial hemorrhage identified. Kumar Briceño MD Cervical Spine CT 09/10/16 0000 Signed Impressions: Service Date/Time: Saturday, September 10, 2016 11:05 - CONCLUSION: 1. The examination demonstrates a fracture of both sides of the lamina of C2. The vertebral body itself appears intact. 2. CT angiography to assess the left vertebral artery is pending. Kumar Briceño MD Medical Decision Making Impression and Plan Impression: 1. C2 bilateral laminar fracture-stable 2. 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 Hypertension 4. Third-degree AV block history Plan: Discussed with patient Discussed with nursing staff Continue cervical collar May mobilize out of bed with assistance from neurosurgical standpoint Mikhail Rodgers MD Sep 11, 2016 23:49
[2016-09-12] VITALS (24 sets, daily range): BP systolic 125–188; BP diastolic 64–93; PULSE 64–100; RESP 18–22; TEMP 97.8–98.2; O2SAT 97–100
[2016-09-12] MEDS: INSULIN ASPART SUPPLEMENTAL SCALE SQ SCH ×4 (05:50→20:33)
--- NOTE | 2016-09-12 07:38 | HHI.PR ---
Subjective Remarks No acute events overnight. Afebrile, vital signs stable. Hypertensive 1 to 188/84. Patient complains of weakness this morning. Also states he has pain in the back of his neck and thinks his cervical collar is too tight. Objective Vitals Vital Signs Date Time Temp Pulse Resp B/P Pulse Ox O2 Delivery O2 Flow Rate FiO2 09/12/16 06:00 69 09/12/16 05:00 79 09/12/16 04:00 66 09/12/16 04:00 98.0 65 18 188/84 100 09/12/16 03:00 69 09/12/16 00:00 97.8 66 18 125/64 98 09/12/16 00:00 66 09/11/16 23:00 64 09/11/16 22:00 78 09/11/16 20:00 97.8 72 18 162/94 96 09/11/16 20:00 84 09/11/16 19:00 82 09/11/16 18:00 88 09/11/16 17:06 87 09/11/16 16:00 57 09/11/16 16:00 98.0 66 18 179/90 95 09/11/16 15:00 81 09/11/16 14:00 80 09/11/16 13:00 72 09/11/16 12:29 68 09/11/16 12:00 97.9 71 18 183/95 96 09/11/16 10:00 75 09/11/16 09:00 74 09/11/16 08:00 59 09/11/16 08:00 97.8 76 20 171/98 I/O 09/11/16 09/11/16 09/11/16 09/12/16 09/12/16 09/12/16 07:00 15:00 23:00 07:00 15:00 23:00 Intake Total 91 ml 300 ml 680 ml 240 ml Output Total 400 ml 850 ml 500 ml 500 ml Balance -309 ml -550 ml 180 ml -260 ml Intake Oral 40 ml 300 ml 680 ml 240 ml IV Total 51 ml 0 ml 0 ml Output Urine Total 400 ml 850 ml 500 ml 500 ml # Bowel Movements 0 0 0 Result Diagram: 09/10/16 0535 09/10/16 0535 Imaging GENERAL: This is a well-nourished, well-developed patient, in no apparent distress. NECK: C collar in place. CARDIOVASCULAR: Regular rate and rhythm RESPIRATORY: Clear to auscultation. Breath sounds equal bilaterally. No wheezes , rales, or rhonchi. GASTROINTESTINAL: Abdomen soft, non-tender, nondistended. Normal active bowel sounds MUSCULOSKELETAL: Extremities without clubbing, cyanosis, or edema. NEURO: Alert & Oriented x3 to person, place, time. Moves all ext x4 with 5/5 strength in extremities x 4. A/P Problem List: (1) Syncope and collapse ICD Code: R55 Status: Acute (2) New cerebellar infarct ICD Code: I63.9 Status: Acute (3) C2 cervical fracture ICD Code: S12.100A Status: Acute (4) Third degree atrioventricular block ICD Code: I44.2 Status: Acute (5) Type 2 diabetes mellitus ICD Code: E11.9 Status: Chronic (6) Hyperlipemia ICD Code: E78.5 Status: Chronic (7) Hypertension ICD Code: I10 Status: Chronic Assessment and Plan Patient is 76 yo M, on vacation from [place], transferred from [facility] after syncopal episode, found to have first degree AV block, intermittent third-degree AV block, C2 cervical spine fracture. Syncope and collapse - work up completed at [facility] in [facility], and transferred to [place] by for Neurosurgery evaluation of cervical fracture Acute left inferior cerebellar hemisphere infarction extending into the peduncle. Measuring approximately 4.3 x 3.6 cm without hemorrhagic component or significant mass effect per MRI at [facility] on 09/09/2016 - Consult ST, PT, and OT - Aspirin 325 mg daily - Further recommendations per neurology: continued permissible hypertension to maintain perfusion - MRA neck for 11/23/16 at [facility]; proximal right ICA and carotid bulb stenosis with approximately 50% narrowing. The upper cervical portion of the right ICA not well visualized thought to be related to tortuosity and artifact. No significant left ICA stenosis. First-degree heart block with intermittent third degree heart block - Obtain echocardiogram results from [facility] - Consult cardiology - assistance appreciated - patient was seen by Dr. Correa at [facility] - Continuous cardiac telemetry, further recommendations per Cardiology C2 fracture - C2 fracture involving the right lamina with distraction of the fracture fragments by 5 mm. There is an additional fracture of C2 at the junction of the left pedicle, anterior margin of the lamina, and transverse process with distraction of approximately 5-6 mm. - Appreciate Neurosurgery consult and recommendations - Continue with cervical collar - Per NS, patient will require C-spine x-rays every 6 weeks to monitor healing Type 2 diabetes mellitus - Hold glimepiride and metformin for now - Accu-Cheks before meals and at bedtime with low-dose NovoLog sliding scale coverage - No supplemental insulin requirement over past 24 hours, well-controlled - Follow trends and blood glucose levels and adjust treatment as needed versus discontinue Accu-Cheks Hyperlipidemia. Total cholesterol 134, LDL 65; well-controlled hyperlipidemia - Continue atorvastatin. Hypertension, permissive hypertension per neurology - Continue lisinopril, Nicardipine drip started by Neurosurgery - Monitor blood pressure trends -Blood pressure control per neurology DVT prophylaxis - SCDs, Lovenox Diet: passed swallow eval, diabetic diet Pericolace 2 tabs twice a day Will transfer patient to floor Discharge Planning pending neurology clearance; would like to take patient back to [place] upon dc Problem Qualifiers (1) Type 2 diabetes mellitus: (2) Hypertension: Qualified Code: I10 - Essential hypertension Awa Mcconnell MD R3 Sep 12, 2016 07:38
[2016-09-12] MEDS ORDERED: ATROPINE SULFATE 1 MG/ML VIAL ONE (07:45)
[2016-09-12] MEDS ORDERED: DOPamine INJ PREMIX 500 ML ONE (07:56)
[2016-09-12] MEDS ORDERED: TERBUTALINE INJ 1 MG/ML AMP SQ PRN (08:30)
[2016-09-12] MEDS ORDERED: DOPamine INJ PREMIX 500 ML IV SCH (08:30)
--- NOTE | 2016-09-12 08:31 | PD.CONS ---
HPI Service Critical Care Medicine Consult Requested By [facility] Reason for Consult Syncope Primary Care Physician Non-Staff History of Present Illness Mr. Doty is a pleasant 76-year-old male with a history of type 2 diabetes mellitus (blood sugars checked at home once a week range 130s to 140s), melanoma , hyperlipidemia, and hypertension who is visiting from [place] and was brought to [facility] in [place] on 09/08/2016 after experiencing a syncopal episode. The patient states he was sitting on a kitchen bar stool drinking coffee when he suddenly became diaphoretic and dizzy. He went to get a wet washcloth to put on the back of his neck and that is lasting he remembers. He was estimated to be unconscious for about 30 seconds. Prior to syncope, he denies chest pain, shortness of breath, and nausea. He also denies any weakness in his legs and arms, blurred vision, or headache. At [facility], he was diagnosed with first-degree AV block, intermittent third-degree AV block, and C2 cervical spine fracture and placed in a hard neck brace. See imaging section for full summary of radiological findings from prior hospitalization. Mr. Doty says this morning, he developed numbness on the left side of his face with inability to open his left thigh wide. 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 The patient denies any prior history of CVA, TIA, or heart disease. The patient's only reported at the time of visit is that his neck brace is not fitting well and is interfering with his ability to open and close his mouth. EKG from [facility] reviewed and shows first-degree AV block Subsequently evaluated by Neurosurgery, Cardiology. 09/12: Today developed syncope again with pulse 20s. Placed back in bed from chair. Completer AV block vs 2nd degree. Responded to atropine -> NSR with 1st degree block. Start on low dose dopamine. Fully responsive after but memory hazy. Review of Systems ROS No chest pain or SOB Past Family Social History Allergies: Coded Allergies: No Known Allergies (Unverified , 09/09/16) Past Medical History Past Medical History Type 2 diabetes mellitus Hyperlipidemia Hypertension Melanoma - removed from right axillary region with negative lymph nodes. . Past Surgical History Hernia repair Bilateral cataract surgery 2016 Right axillary melanoma removal with lymph node dissection . Reported Medications Glimepiride 2 mg every morning Atorvastatin 40 mg by mouth daily Metformin 1000 mg by mouth twice a day Lisinopril 10 mg by mouth daily . Allergies: Coded Allergies: No Known Allergies (Unverified , 09/09/16) Family History Mother with melanoma Father with throat cancer . Social History Tobacco: Quit smoking 28 years ago Alcohol: Drinks an occasional beer Physical Exam Vital Signs Vital Signs Date Time Temp Pulse Resp B/P Pulse Ox O2 Delivery O2 Flow Rate FiO2 09/12/16 06:00 69 09/12/16 05:00 79 09/12/16 04:00 66 09/12/16 04:00 98.0 65 18 188/84 100 09/12/16 03:00 69 09/12/16 00:00 97.8 66 18 125/64 98 09/12/16 00:00 66 09/11/16 23:00 64 09/11/16 22:00 78 09/11/16 20:00 97.8 72 18 162/94 96 09/11/16 20:00 84 09/11/16 19:00 82 09/11/16 18:00 88 09/11/16 17:06 87 09/11/16 16:00 57 09/11/16 16:00 98.0 66 18 179/90 95 09/11/16 15:00 81 09/11/16 14:00 80 09/11/16 13:00 72 09/11/16 12:29 68 09/11/16 12:00 97.9 71 18 183/95 96 09/11/16 10:00 75 09/11/16 09:00 74 Physical Exam Pulse irreg 20s, R 8, BP 88/42, Sats 88% Head: Left periorbital edema. Neck: Cervical collar. Lungs: Clear, no wheezes or crackles. Heart: Irreg Irreg, no JVD. Abdomen: Soft, no guarding. Extremities: Well perfused. Neuro: Disoriented to date, time, place. Confused. Protects airway. Laboratory Laboratory Tests Test 09/11/16 11:40 Nasal Screen MRSA (PCR) NEGATIVE Result Diagram: 09/10/16 0535 09/10/1635 Assessment and Plan Problem List: (1) Syncope and collapse ICD Code: R55 Status: Acute (2) Third degree atrioventricular block ICD Code: I44.2 Status: Acute (3) New cerebellar infarct ICD Code: I63.9 Status: Acute (4) C2 cervical fracture ICD Code: S12.100A Status: Acute (5) Hyperlipemia ICD Code: E78.5 Status: Chronic (6) Hypertension ICD Code: I10 Status: Chronic (7) Type 2 diabetes mellitus ICD Code: E11.9 Status: Chronic Assessment and Plan Plan: 1. Atropine prn. 2. Dopamine gtt. 3. Bed rest. 4. Pepcid. 5. DVT Px per neurosurgery. 6. SCDs. 7. Review electrolytes. 8. PPM implantation. 9. Cervical collar for C2 lamina fractures. Overall impression: Critically ill with reproducible syncope and collapse. Requiring chronotropic support. Recent cerebellar infarct. Need to maintain CPP. Critical Care 45 mins Problem Qualifiers (1) Hypertension: Qualified Code: I10 - Essential hypertension (2) Type 2 diabetes mellitus: Donny Campos MD Sep 12, 2016 08:31
[2016-09-12] MEDS: SODIUM CHLOR 0.9% 1000 ML INJ 1,000 ML IV SCH ×2 (08:43→20:33)
[2016-09-12] MEDS ORDERED: ACETAMINOPHEN 325 MG TAB PO PRN (08:45)
[2016-09-12] MEDS ORDERED: SODIUM CHLORIDE 0.9% FLUSH 10 ML FLUSH IV FLUSH PRN (08:45)
[2016-09-12] MEDS ORDERED: CHLORHEXIDINE GLUCONATE 2 % 1 PACK (2 CLOTHS) TOP PRN (08:45)
[2016-09-12] MEDS ORDERED: MISCELLANEOUS NURSING INFORMATION XX SCH (08:45)
[2016-09-12] MEDS ORDERED: RESP: ALBUTEROL 2.5 MG/IPRATROPIUM 0.5 MG NEB (PRN) INH (08:45)
[2016-09-12] MEDS ORDERED: MAGNESIUM SULFATE INJ 4 GM in SODIUM CHLORIDE 0.9% INJ 92 ML IV PRN (09:00)
[2016-09-12] MEDS: SODIUM CHLORIDE 0.9% FLUSH 10 ML FLUSH IV FLUSH SCH ×2 (09:00→20:33)
[2016-09-12] MEDS ORDERED: MAGNESIUM OXIDE 400 MG TAB PO PRN (09:00)
[2016-09-12] MEDS ORDERED: POTASSIUM PHOSPHATE MONOBASIC 500 MG TAB PO/TUBE PRN (09:00)
[2016-09-12] MEDS ORDERED: MAGNESIUM SULFATE INJ 2 GM in SODIUM CHLORIDE 0.9% INJ 96 ML IV PRN (09:00)
[2016-09-12] MEDS ORDERED: POTASSIUM CHLOR 20 MEQ PREMIX 100 ML IV PRN ×2 (09:00)
[2016-09-12] MEDS ORDERED: SODIUM PHOSPHATE INJ 30 MMOL in SODIUM CHLOR 0.9% 250 ML INJ 240 ML IV PRN (09:00)
[2016-09-12] MEDS ORDERED: POTASSIUM PHOSPHATE MONOBASIC 500 MG TAB PO PRN (09:00)
[2016-09-12] MEDS ORDERED: POTASSIUM PHOSPHATE INJ 30 MMOL in SODIUM CHLOR 0.9% 250 ML INJ 250 ML IV PRN (09:00)
[2016-09-12] MEDS ORDERED: POTASSIUM CHLOR 40 MEQ PREMIX 100 ML IV PRN ×2 (09:00)
[2016-09-12] MEDS: DOCUSATE SODIUM 50 MG/SENNA 8.6 MG TAB PO SCH ×2 (09:31→20:33)
[2016-09-12] MEDS: ASPIRIN 325 MG TAB PO SCH (09:31)
[2016-09-12] MEDS: LISINOPRIL 10 MG TAB PO SCH (09:31)
[2016-09-12] MEDS: FAMOTIDINE 20 MG/2 ML VIAL IV PUSH SCH ×2 (09:32→20:33)
[2016-09-12 11:33] LABS: MAGNESIUM 2.1 MG/DL (1.5-2.5)
--- NOTE | 2016-09-12 16:13 | HHI.NSPN ---
History Chief Complaint: I want to shave my sacnhez Interval History 76-year-old male with recent syncopal episode and collapse resulting in C2 fracture with small amount of thrombus unilaterally in the vertebral artery at the C2 fracture site was secondary cerebellar CVA. History of hypertension, third-degree AV block Exam Results Vital Signs Date Time Temp Pulse Resp B/P Pulse Ox O2 Delivery O2 Flow Rate FiO2 09/12/16 15:00 72 09/12/16 12:00 98.2 22 171/78 99 09/12/16 08:58 Nasal Cannula 2.00 Intake and Output 09/11/16 09/11/16 09/12/16 08:00 16:00 00:00 Intake Total 91 ml 300 ml 680 ml Output Total 400 ml 850 ml 500 ml Balance -309 ml -550 ml 180 ml Physical Examination Awake and alert Oriented and conversant Seems to have diminished judgment and insight Answer simple questions appropriately and follows simple commands well Left facial paresis Disconjugate gaze with complaint of diplopia Patch over the left eye Cervical collar in place No significant neck tenderness Appears to have diminished coordination left lower extremity Lab, Micro, Other Results Laboratory Tests Test 09/12/16 10:31 Phosphorus Level 3.0 MG/DL Magnesium Level 2.1 MG/DL Medical Decision Making Impression and Plan Impression: 1. C2 bilateral laminar fracture-stable 2. 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 Hypertension 4. Third-degree AV block history Plan: Discussed with patient and in the intensive care unit today Possible new syncopal episode last evening. Discussed with nursing staff Continue cervical collar May mobilize out of bed with assistance from neurosurgical standpoint Further cardiac workup as indicated. Name Plate Stamping Machine Operator/medicine service Mikhail Rodgers MD Sep 12, 2016 16:13
[2016-09-12] MEDS: ATORVASTATIN 40 MG TAB PO SCH (20:33)
[2016-09-13] VITALS (19 sets, daily range): BP systolic 134–172; BP diastolic 69–82; PULSE 60–96; RESP 15–28; TEMP 97.5–98.9; O2SAT 94–100
[2016-09-13] MEDS: CHLORHEXIDINE GLUCONATE 2 % 1 PACK (2 CLOTHS) TOP SCH (03:13)
[2016-09-13 04:12] LABS: MAGNESIUM 2.1 MG/DL (1.5-2.5); POTASSIUM 4.1 MEQ/L (3.5-5.1)
[2016-09-13] MEDS: SODIUM CHLOR 0.9% 1000 ML INJ 1,000 ML IV SCH ×2 (05:52→20:39)
[2016-09-13] MEDS: ACETAMINOPHEN 325 MG TAB PO PRN (05:56)
[2016-09-13] MEDS: INSULIN ASPART SUPPLEMENTAL SCALE SQ SCH ×4 (06:14→21:00)
[2016-09-13] MEDS: FAMOTIDINE 20 MG/2 ML VIAL IV PUSH SCH ×2 (08:20→20:20)
[2016-09-13] MEDS: ASPIRIN 325 MG TAB PO SCH (08:20)
[2016-09-13] MEDS: LISINOPRIL 10 MG TAB PO SCH (08:20)
[2016-09-13] MEDS: DOCUSATE SODIUM 50 MG/SENNA 8.6 MG TAB PO SCH ×2 (08:20→20:18)
[2016-09-13] MEDS: SODIUM CHLORIDE 0.9% FLUSH 10 ML FLUSH IV FLUSH SCH ×2 (08:21→22:47)
--- NOTE | 2016-09-13 08:45 | HHI.CCPN ---
Subjective Remarks/Hospital Course Mr. Doty is a pleasant 76-year-old male with a history of type 2 diabetes mellitus (blood sugars checked at home once a week range 130s to 140s), melanoma , hyperlipidemia, and hypertension who is visiting from [place] and was brought to [facility] in [place] on 09/08/2016 after experiencing a syncopal episode. The patient states he was sitting on a kitchen bar stool drinking coffee when he suddenly became diaphoretic and dizzy. He went to get a wet washcloth to put on the back of his neck and that is lasting he remembers. He was estimated to be unconscious for about 30 seconds. Prior to syncope, he denies chest pain, shortness of breath, and nausea. He also denies any weakness in his legs and arms, blurred vision, or headache. At [facility], he was diagnosed with first-degree AV block, intermittent third-degree AV block, and C2 cervical spine fracture and placed in a hard neck brace. See imaging section for full summary of radiological findings from prior hospitalization. Mr. Doty says this morning, he developed numbness on the left side of his face with inability to open his left thigh wide. 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 The patient denies any prior history of CVA, TIA, or heart disease. The patient's only reported at the time of visit is that his neck brace is not fitting well and is interfering with his ability to open and close his mouth. EKG from [facility] reviewed and shows first-degree AV block Subsequently evaluated by Neurosurgery, Cardiology. 09/12: Today developed syncope again with pulse 20s. Placed back in bed from chair. Completer AV block vs 2nd degree. Responded to atropine -> NSR with 1st degree block. Start on low dose dopamine. Fully responsive after but memory hazy. 09/13: Remained NSR all night since dopamine initiated. Objective Vital Signs Date Time Temp Pulse Resp B/P Pulse Ox O2 Delivery O2 Flow Rate FiO2 09/13/16 06:00 74 09/13/16 04:00 98.5 16 171/79 100 09/12/16 08:58 Nasal Cannula 2.00 Intake and Output 09/12/16 09/12/16 09/13/16 08:00 16:00 00:00 Intake Total 240 ml 917 ml 833 ml Output Total 500 ml 1200 ml 300 ml Balance -260 ml -283 ml 533 ml Result Diagram: 09/10/16 0535 09/13/16 0304 Objective Remarks Pulse 70s, R 14, BP 177/82, Sats 95% Head: Left periorbital edema, left facial droop. Neck: Cervical collar. Lungs: Clear, no wheezes or crackles. Comfortable pattern. Heart: RRR, 70s, no JVD. Abdomen: Soft, no guarding. BS active. Extremities: Well perfused. Warm. Neuro: O X 3, alert, conversant. Moves 4 limbs. A/P Problem List: (1) Syncope and collapse ICD Code: R55 Status: Acute (2) Third degree atrioventricular block ICD Code: I44.2 Status: Acute (3) New cerebellar infarct ICD Code: I63.9 Status: Acute (4) C2 cervical fracture ICD Code: S12.100A Status: Acute (5) Hyperlipemia ICD Code: E78.5 Status: Chronic (6) Hypertension ICD Code: I10 Status: Chronic (7) Type 2 diabetes mellitus ICD Code: E11.9 Status: Chronic Assessment and Plan Plan: 1. Atropine prn. 2. Dopamine gtt. 3. Bed rest. 4. Pepcid. 5. DVT Px per neurosurgery. 6. SCDs. 7. Review electrolytes. 8. PPM implantation. 9. Cervical collar for C2 lamina fractures. Overall impression: Critically ill with reproducible syncope and collapse. Requiring chronotropic support. Recent cerebellar infarct. Need to maintain CPP. NSR now, much improved. Critical Care 37 mins Problem Qualifiers (1) Hypertension: Qualified Code: I10 - Essential hypertension (2) Type 2 diabetes mellitus: Donny Campos MD Sep 13, 2016 08:45
--- NOTE | 2016-09-13 12:06 | HHI.NSPN ---
(Amisha Scott) Note Status Status: Progress Note (Amisha Scott) Interval History Interval History 76-year-old male with recent syncopal episode and collapse resulting in C2 fracture with small amount of thrombus unilaterally in the vertebral artery at the C2 fracture site was secondary cerebellar CVA. History of hypertension, third-degree AV block 09/13: no new neuro complaints, dc planning to rehab, left eye patched for diplopia. (Amisha Scott) Labs, Micro, & Vital Signs Results Date Time Temp Pulse Resp B/P Pulse Ox O2 Delivery O2 Flow Rate FiO2 09/13/16 08:00 97.9 66 18 152/82 100 09/13/16 08:00 87 09/13/16 06:00 74 09/13/16 05:00 64 09/13/16 04:00 64 09/13/16 04:00 98.5 64 16 171/79 100 09/13/16 03:00 66 09/13/16 02:00 66 09/13/16 01:00 72 09/13/16 00:00 98.9 62 17 134/69 100 09/13/16 00:00 62 09/12/16 23:00 64 09/12/16 22:00 64 09/12/16 21:00 70 09/12/16 20:00 98.2 68 19 153/82 97 09/12/16 20:00 68 09/12/16 19:00 70 09/12/16 18:00 94 09/12/16 17:00 71 09/12/16 16:00 70 09/12/16 16:00 98.2 70 19 169/82 99 09/12/16 15:00 72 09/12/16 14:00 72 09/12/16 13:00 80 09/12/16 12:00 81 09/12/16 12:00 98.2 81 22 171/78 99 09/13/16 07:00 Intake Total 2488 ml Output Total 1800 ml Balance 688 ml Constitutional Vital Signs Date Time Temp Pulse Resp B/P Pulse Ox O2 Delivery O2 Flow Rate FiO2 09/13/16 08:00 97.9 66 18 152/82 100 09/13/16 08:00 87 09/13/16 06:00 74 09/13/16 05:00 64 09/13/16 04:00 64 09/13/16 04:00 98.5 64 16 171/79 100 09/13/16 03:00 66 09/13/16 02:00 66 09/13/16 01:00 72 09/13/16 00:00 98.9 62 17 134/69 100 09/13/16 00:00 62 09/12/16 23:00 64 09/12/16 22:00 64 09/12/16 21:00 70 09/12/16 20:00 98.2 68 19 153/82 97 09/12/16 20:00 68 09/12/16 19:00 70 09/12/16 18:00 94 09/12/16 17:00 71 09/12/16 16:00 70 09/12/16 16:00 98.2 70 19 169/82 99 09/12/16 15:00 72 09/12/16 14:00 72 09/12/16 13:00 80 09/12/16 12:00 81 09/12/16 12:00 98.2 81 22 171/78 99 09/13/16 07:00 Intake Total 2488 ml Output Total 1800 ml Balance 688 ml (Amisha Scott) Review of Systems/Exam Exam Alert, eating breakfast. Follows commands well. Dysarthric speech CN; pupils equal, EOMs intact, mild left lateral gaze nystagmus, reports of diplopia, left supranuclear palsy Neck: immobilized by cervical collar Motor: moves all four extremities well Cerebellar: mild left finger to nose dysmetria (Amisha Scott) Medications Current Medications Current Medications Medications (Trade) Dose Ordered Sig/Talha Route PRN Reason Start Time Stop Time Status Last Admin Dose Admin Dextrose (D50w (Vial) Inj) 25 ml UNSCH PRN IV PUSH HYPOGLYCEMIA-SEE COMMENTS 09/09/16 21:00 Glucagon (Glucagon Inj) 1 mg UNSCH PRN OTHER HYPOGLYCEMIA-SEE COMMENTS 09/09/16 21:00 Ondansetron HCl (Zofran Inj) 4 mg Q8HR PRN IV PUSH NAUSEA 09/09/16 21:00 Lisinopril (Prinivil) 10 mg DAILY PO 09/10/16 09:00 09/13/16 08:20 Atorvastatin Calcium 40 mg 40 mg HS PO 09/10/16 21:00 09/12/16 20:33 Nicardipine HCl/ Sodium Chloride (Cardene Inj/NS 250 ml Inj) 260 ml @ 0 mls/hr TITRATE IV 09/10/16 12:15 09/10/16 23:19 Acetaminophen (Tylenol) 650 mg Q4H PRN PO PAIN 1-5 09/10/16 19:00 09/13/16 05:56 Acetaminophen/ Hydrocodone Bitart (Durand 5-325 Mg) 1 tab Q4H PRN PO PAIN 6-10 09/10/16 19:00 Aspirin (Aspirin) 325 mg DAILY PO 09/11/16 10:30 09/13/16 08:20 Senna/Docusate Sodium 2 tab 2 tab BID PO 09/12/16 09:00 09/13/16 08:20 Dopamine HCl/ Dextrose (DOPamine INJ PREMIX) 500 ml @ 9.304 mls/ hr TITRATE IV 09/12/16 08:30 Terbutaline Sulfate (Brethine Inj) 1 mg UNSCH PRN SQ For Extravasation 09/12/16 08:30 Atropine Sulfate (Atropine Inj) 0.5 mg Q30M PRN IV PUSH P < 45 or SBP < 90 09/12/16 08:30 Famotidine 20 mg 20 mg Q12H IV PUSH 09/12/16 08:45 09/13/16 08:20 Sodium Chloride (NS 1000 ml Inj) 1,000 ml @ 84 mls/hr [id number] IV 09/12/16 08:43 09/13/16 05:52 Sodium Chloride (NS Flush) 2 ml UNSCH PRN IV FLUSH FLUSH AFTER USING IV ACCESS 09/12/16 08:45 Sodium Chloride (NS Flush) 2 ml BID IV FLUSH 09/12/16 09:00 09/13/16 08:21 Acetaminophen (Tylenol) 650 mg Q6H PRN PO PAIN 1-10 AND/OR FEVER >101F 09/12/16 08:45 Miscellaneous Information 1 [id number] XX 09/12/16 08:45 Chlorhexidine Gluconate (Chlorhexidine 2% Cloth) 3 pack Taper DAILY@04 TOP 09/13/16 04:00 09/09/17 03:59 09/13/16 03:13 Chlorhexidine Gluconate 3 pack 3 pack UNSCH PRN TOP HYGIENIC CARE 09/12/16 08:45 Potassium Chloride 100 ml @ 50 mls/hr Q2H PRN IV For Potassium 2.8 - 3.2 mEq/L 09/12/16 09:00 Potassium Chloride 100 ml @ 50 mls/hr Q2H PRN IV For Potassium 2.8 - 3.2 mEq/L 09/12/16 09:00 Potassium Chloride 100 ml @ 25 mls/hr UNSCH PRN IV For Potassium 3.3 - 3.5 mEq/L 09/12/16 09:00 Potassium Chloride 100 ml @ 50 mls/hr Q2H PRN IV For Potassium 3.3 - 3.5 mEq/L 09/12/16 09:00 Magnesium Sulfate/ Sodium Chloride (Magnesium Sulfate Inj/NS Inj) 100 ml @ 50 mls/hr UNSCH PRN IV For Magnesium 0.9 - 1.1 mg/dL 09/12/16 09:00 Magnesium Oxide 800 mg 800 mg UNSCH PRN PO For Magnesium 1.2 - 1.6 mg/dL 09/12/16 09:00 Magnesium Sulfate/ Sodium Chloride (Magnesium Sulfate Inj/NS Inj) 100 ml @ 50 mls/hr UNSCH PRN IV For Magnesium 1.2 - 1.6 mg/dL 09/12/16 09:00 Potassium Phosphate 2000 mg 2,000 mg Q4H PRN PO For Phosphorus < 2.5 mg/dL 09/12/16 09:00 Sodium Phosphate/ Sodium Chloride (Sodium Phosphate Inj/NS 250 ml Inj) 250 ml @ 42 mls/hr UNSCH PRN IV For Phosphorus < 2.5 mg/dL 09/12/16 09:00 Potassium Phosphate 2000 mg 2,000 mg UNSCH PRN PO/TUBE SEE LABEL COMMENTS 09/12/16 09:00 Potassium Phosphate/Sodium Chloride (Potassium Phosphate Inj/NS 250 ml Inj) 260 ml @ 42 mls/hr UNSCH PRN IV SEE LABEL COMMENTS 09/12/16 09:00 (Amisha Scott) Medical Decision Making MDM Remarks 76 y/o male 1. C2 bilateral laminar fracture-stable 2. 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 Hypertension 4. Third-degree AV block history (Amisha Scott) Plan Plan Remarks cont stroke therapy maintain cervical collar ok OOB from NRS standpoint cont mgt per critical care (Amisha Scott) Attending Statement The exam, history, and the medical decision-making described in the above note were completed with the assistance of the mid-level provider. I reviewed and agree with the findings presented. I attest that I had a [id number] encounter with the patient on the same day, and personally performed and documented my assessment and findings in the medical record. (Judd Perez MD) Amisha Scott Sep 13, 2016 12:06 Judd Perez MD Sep 19, 2016 18:14
--- NOTE | 2016-09-13 14:00 | EKG ---
Date Performed: 09/12/2016 Time Performed: 07:51:46 PTAGE: 76 years EKG: Sinus tachycardia with 1st degree A-V block Possible inferior infarct - age undetermined Ab normal ECG NO PREVIOUS TRACING DOCTOR: Buffy Dow Interpretating Date/Time 09/13/2016 13:58:50
--- NOTE | 2016-09-13 19:35 | PD.CARD.PN ---
Subjective Subjective Remarks No chest pain, no shortness of breath Event yesterday with syncope, heart rate in high degree AV block with rate in the 20s, responded to Atropine and started on Dopamine drip Today heart rates down to 40s at one point Objective Medications Current Medications Medications (Trade) Dose Ordered Sig/Talha Route Start Time Stop Time Status Last Admin (D50w (Vial) Inj) 25 ml UNSCH PRN IV PUSH 09/09/16 21:00 (Glucagon Inj) 1 mg UNSCH PRN OTHER 09/09/16 21:00 (Zofran Inj) 4 mg Q8HR PRN IV PUSH 09/09/16 21:00 (Prinivil) 10 mg DAILY PO 09/10/16 09:00 09/13/16 08:20 Atorvastatin Calcium 40 mg 40 mg HS PO 09/10/16 21:00 09/12/16 20:33 (Cardene Inj/NS 250 ml Inj) 260 ml @ 0 mls/hr TITRATE IV 09/10/16 12:15 09/10/16 23:19 (Tylenol) 650 mg Q4H PRN PO 09/10/16 19:00 09/13/16 05:56 ([place] 5-325 Mg) 1 tab Q4H PRN PO 09/10/16 19:00 (Aspirin) 325 mg DAILY PO 09/11/16 10:30 09/13/16 08:20 Senna/Docusate Sodium 2 tab 2 tab BID PO 09/12/16 09:00 09/13/16 08:20 (DOPamine INJ PREMIX) 500 ml @ 9.304 mls/ hr TITRATE IV 09/12/16 08:30 (Brethine Inj) 1 mg UNSCH PRN SQ 09/12/16 08:30 (Atropine Inj) 0.5 mg Q30M PRN IV PUSH 09/12/16 08:30 Famotidine 20 mg 20 mg Q12H IV PUSH 09/12/16 08:45 09/13/16 08:20 (NS 1000 ml Inj) 1,000 ml @ 84 mls/hr [id number] IV 09/12/16 08:43 09/13/16 05:52 (NS Flush) 2 ml UNSCH PRN IV FLUSH 09/12/16 08:45 (NS Flush) 2 ml BID IV FLUSH 09/12/16 09:00 09/13/16 08:21 (Tylenol) 650 mg Q6H PRN PO 09/12/16 08:45 Miscellaneous Information 1 Q361D XX 09/12/16 08:45 (Chlorhexidine 2% Cloth) 3 pack Taper DAILY@04 TOP 09/13/16 04:00 09/09/17 03:59 09/13/16 03:13 Chlorhexidine Gluconate 3 pack 3 pack UNSCH PRN TOP 09/12/16 08:45 Potassium Chloride 100 ml @ 50 mls/hr Q2H PRN IV 09/12/16 09:00 Potassium Chloride 100 ml @ 50 mls/hr Q2H PRN IV 09/12/16 09:00 Potassium Chloride 100 ml @ 25 mls/hr UNSCH PRN IV 09/12/16 09:00 Potassium Chloride 100 ml @ 50 mls/hr Q2H PRN IV 09/12/16 09:00 (Magnesium Sulfate Inj/NS Inj) 100 ml @ 50 mls/hr UNSCH PRN IV 09/12/16 09:00 Magnesium Oxide 800 mg 800 mg UNSCH PRN PO 09/12/16 09:00 (Magnesium Sulfate Inj/NS Inj) 100 ml @ 50 mls/hr UNSCH PRN IV 09/12/16 09:00 Potassium Phosphate 2000 mg 2,000 mg Q4H PRN PO 09/12/16 09:00 (Sodium Phosphate Inj/NS 250 ml Inj) 250 ml @ 42 mls/hr UNSCH PRN IV 09/12/16 09:00 Potassium Phosphate 2000 mg 2,000 mg UNSCH PRN PO/TUBE 09/12/16 09:00 Potassium Phosphate 30 mmol/ Sodium Chloride 260 ml @ 42 mls/hr UNSCH PRN IV 09/12/16 09:00 Cefazolin Sodium 1000 mg/Sodium Chloride 100 ml @ 0 mls/hr ONCE IV 09/14/16 15:00 09/15/16 14:59 (Vancomycin Inj/ NS 250 ml Inj) 250 ml @ 0 mls/hr ONCE IV 09/14/16 15:00 09/15/16 14:59 (Betadine 5% Antisepsis Kit) 1 applic HS TOPICAL 09/13/16 21:00 (Bactroban Nasal 2% Oint) 1 applic HS EACH NARE 09/13/16 21:00 (Chlorhexidine 2% Cloth) 1 pack HS TOPICAL 09/13/16 21:00 Vital Signs / I&O Vital Signs Date Time Temp Pulse Resp B/P Pulse Ox O2 Delivery O2 Flow Rate FiO2 09/13/16 18:00 82 09/13/16 16:00 69 09/13/16 16:00 97.9 69 28 151/81 97 09/13/16 15:00 96 09/13/16 14:00 74 09/13/16 12:00 69 09/13/16 12:00 97.9 69 28 172/82 99 09/13/16 10:00 72 09/13/16 08:00 97.9 66 18 152/82 100 09/13/16 08:00 87 09/13/16 07:00 63 09/13/16 06:00 74 09/13/16 05:00 64 09/13/16 04:00 64 09/13/16 04:00 98.5 64 16 171/79 100 09/13/16 03:00 66 09/13/16 02:00 66 09/13/16 01:00 72 09/13/16 00:00 98.9 62 17 134/69 100 09/13/16 00:00 62 09/12/16 23:00 64 09/12/16 22:00 64 09/12/16 21:00 70 09/12/16 20:00 98.2 68 19 153/82 97 09/12/16 20:00 68 I/O 09/12/16 09/12/16 09/12/16 09/13/16 09/13/16 09/13/16 07:00 15:00 23:00 07:00 15:00 23:00 Intake Total 240 ml 1750 ml 738 ml 1335 ml Output Total 500 ml 1500 ml 300 ml 1400 ml Balance -260 ml 250 ml 438 ml -65 ml Intake Oral 240 ml 730 ml 100 ml 660 ml IV Total 0 ml 1020 ml 638 ml 675 ml Output Urine Total 500 ml 1500 ml 300 ml 1400 ml # Bowel Movements 0 0 0 Physical Exam GENERAL: NAD, AAOx3 SKIN: Warm and dry. HEAD: Atraumatic. Normocephalic. EYES: Left eye with patch due to diplopia ENT: No nasal bleeding or discharge. Mucous membranes pink and moist. Left sided facial droop NECK: Trachea midline. Neck collar in place CARDIOVASCULAR: Regular rate and rhythm. RESPIRATORY: No accessory muscle use. Clear to auscultation. Breath sounds equal bilaterally. GASTROINTESTINAL: Abdomen soft, non-tender, nondistended. Hepatic and splenic margins not palpable. MUSCULOSKELETAL: Extremities without clubbing, cyanosis, or edema. No obvious deformities. NEUROLOGICAL: Awake and alert. No obvious cranial nerve deficits. Motor grossly within normal limits. Five out of 5 muscle strength in the arms and legs. Normal speech. PSYCHIATRIC: Appropriate mood and affect; insight and judgment normal. Laboratory Laboratory Tests Test 09/13/16 03:04 Sodium Level 140 MEQ/L Potassium Level 4.1 MEQ/L Chloride Level 105 MEQ/L Carbon Dioxide Level 28.0 MEQ/L Anion Gap 7 MEQ/L Blood Urea Nitrogen 21 MG/DL Creatinine 0.90 MG/DL Estimat Glomerular Filtration 82 ML/MIN Rate Random Glucose 113 MG/DL Calcium Level 9.0 MG/DL Phosphorus Level 3.5 MG/DL Magnesium Level 2.1 MG/DL Assessment and Plan Problem List: (1) Syncope and collapse (2) Hyperlipemia (3) Hypertension (4) New cerebellar infarct (5) C2 cervical fracture (6) High degree atrioventricular block Assessment and Plan 1) Syncopal episode leading to C2 fracture with subsequent cerebral infarct 2) Symptomatic high degree AV block with syncope, currently on Dopamine drip 3) Will consult Dr. Lange from an EP standpoint for consideration of PPM tomorrow Problem Qualifiers (1) Hypertension: Qualified Code: I10 - Essential hypertension Chance Galvan DO Sep 13, 2016 19:35
[2016-09-13] MEDS: ATORVASTATIN 40 MG TAB PO SCH (20:28)
[2016-09-13] MEDS: CHLORHEXIDINE GLUCONATE 2 % 1 PACK (2 CLOTHS) TOPICAL SCH (21:00)
[2016-09-13] MEDS: MUPIROCIN 2% OINT 1 APPLIC/GM SYR EACH NARE SCH (21:00)
[2016-09-13] MEDS: POVIDONE IODINE 5% (ANTISEPSIS KIT) 4 APPLICATIONS TOPICAL SCH (21:00)
[2016-09-13] MEDS: ACETAMINOPHEN/HYDROcodone 325 MG/5 MG TAB PO PRN (22:41)
[2016-09-14] VITALS (14 sets, daily range): BP systolic 100–165; BP diastolic 53–87; PULSE 35–91; RESP 14–25; TEMP 97.5–98; O2SAT 97–100
[2016-09-14] MEDS: ATROPINE SULFATE 1 MG/ML VIAL IV PUSH PRN ×2 (00:23→08:54)
[2016-09-14] MEDS: CHLORHEXIDINE GLUCONATE 2 % 1 PACK (2 CLOTHS) TOP SCH (04:00)
[2016-09-14] MEDS: INSULIN ASPART SUPPLEMENTAL SCALE SQ SCH ×4 (07:00→21:00)
[2016-09-14] MEDS: SODIUM CHLOR 0.9% 1000 ML INJ 1,000 ML IV SCH ×2 (08:00→09:45)
--- NOTE | 2016-09-14 08:06 | MB ---
cc: ANKIT SENA DATE OF CONSULTATION 09/14/2016 REASON FOR CONSULTATION Permanent pacemaker implantation. HISTORY OF PRESENT ILLNESS The patient is a very pleasant 76-year-old white male from [place], with a history of diabetes, hypertension, hyperlipidemia, malignant melanoma who initially presented to [facility] 09/08/2016 after a syncopal episode. Monitoring has revealed episodic complete heart block as well as severe bradycardia. The patient thinks he was unconscious for about 30 seconds. He had one other episode of syncope years ago. 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 He denies chest pain, shortness of breath, pedal edema, paroxysmal nocturnal dyspnea, palpitations. He reports no further syncopal episodes or dizziness. PAST MEDICAL HISTORY 1. Hypertension 2. Diabetes 3. Hyperlipidemia 4. Malignant melanoma removed from his right axillary region with lymph node dissection. MEDICATIONS Cardiac medications at home: 1. Atorvastatin 2. Lisinopril ALLERGIES NO KNOWN DRUG ALLERGIES. FAMILY HISTORY Noncontributory SOCIAL HISTORY The patient quit smoking 28 years ago. He denies alcohol abuse. REVIEW OF SYSTEMS As in the history of present illness, otherwise negative or noncontributory. He also denies abdominal pain, melena, dyspepsia, bright red blood per rectum, or headache. PHYSICAL EXAM On physical examination, his blood pressure 100/53 with a pulse of 55, respirations 20. GENERAL: He is a well-developed, well-nourished white male in no acute distress. HEENT: On examination, the patient is in a cervical collar. CHEST: Examination of the chest reveals clear lung marte anteriorly. CARDIAC: On cardiac examination, he has a regular rhythm and rate without S3-S4 or murmur. ABDOMEN: On abdominal examination, he has a soft, nontender abdomen. Bowel sounds are present. There is no definite hepatosplenomegaly. EXTREMITIES: Examination of the extremities reveals no clubbing, cyanosis or edema. LABORATORY DATA Includes normal CBC, potassium 4.1, BUN 21, creatinine 0.90. Total cholesterol 134, LDL 65, HDL 49, triglycerides 100. EKG from 09/12/2016 shows sinus tachycardia, possible inferior infarct age undetermined, first-degree AV block. IMPRESSION Syncope, acute cerebellar CVA, intermittent high degree AV block in this 76-year -old white male with a history of hypertension, diabetes, malignant melanoma. I have been asked to see the patient for permanent pacemaker implantation. I would definitely agree that the patient needs a pacemaker at this time. He likely lost consciousness on the day of admission due to prolonged asystole. At this time, he is hemodynamically stable on a dopamine drip. The nature of permanent pacemaker implantation and the potential risks including but not limited to cardiac perforation, pneumothorax, bleeding, infection have been outlined to the patient. He agrees to proceed. RECOMMENDATIONS Permanent pacemaker implantation today. MD WANDA Scott/TRACY /7:42 AM /7:59 AM MTDD
[2016-09-14] MEDS: FAMOTIDINE 20 MG/2 ML VIAL IV PUSH SCH ×2 (08:07→20:03)
[2016-09-14] MEDS: SODIUM CHLORIDE 0.9% FLUSH 10 ML FLUSH IV FLUSH SCH ×2 (08:08→20:03)
[2016-09-14] MEDS: DOCUSATE SODIUM 50 MG/SENNA 8.6 MG TAB PO SCH ×2 (08:08→20:02)
[2016-09-14] MEDS: ACETAMINOPHEN 325 MG TAB PO PRN ×2 (08:08→23:28)
[2016-09-14] MEDS: LISINOPRIL 10 MG TAB PO SCH (08:08)
[2016-09-14] MEDS: ASPIRIN 325 MG TAB PO SCH (08:32)
--- NOTE | 2016-09-14 09:01 | HHI.CCPN ---
Subjective Remarks/Hospital Course Mr. Doty is a pleasant 76-year-old male with a history of type 2 diabetes mellitus (blood sugars checked at home once a week range 130s to 140s), melanoma , hyperlipidemia, and hypertension who is visiting from [place] and was brought to [facility] in [place] on 09/08/2016 after experiencing a syncopal episode. The patient states he was sitting on a kitchen bar stool drinking coffee when he suddenly became diaphoretic and dizzy. He went to get a wet washcloth to put on the back of his neck and that is lasting he remembers. He was estimated to be unconscious for about 30 seconds. Prior to syncope, he denies chest pain, shortness of breath, and nausea. He also denies any weakness in his legs and arms, blurred vision, or headache. At [facility], he was diagnosed with first-degree AV block, intermittent third-degree AV block, and C2 cervical spine fracture and placed in a hard neck brace. See imaging section for full summary of radiological findings from prior hospitalization. Mr. Doty says this morning, he developed numbness on the left side of his face with inability to open his left thigh wide. 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 The patient denies any prior history of CVA, TIA, or heart disease. The patient's only reported at the time of visit is that his neck brace is not fitting well and is interfering with his ability to open and close his mouth. EKG from [facility] reviewed and shows first-degree AV block Subsequently evaluated by Neurosurgery, Cardiology. 09/12: Today developed syncope again with pulse 20s. Placed back in bed from chair. Completer AV block vs 2nd degree. Responded to atropine -> NSR with 1st degree block. Start on low dose dopamine. Fully responsive after but memory hazy. 09/13: Remained NSR all night since dopamine initiated. 09/14: Two witnessed episodes of syncope and collapse. Heart block and severe bradycardia well documented. On dopamine for rate support with good blood pressure in the contect of recent CVA. PPM today. Objective Vital Signs Date Time Temp Pulse Resp B/P Pulse Ox O2 Delivery O2 Flow Rate FiO2 09/14/16 06:00 55 09/14/16 04:00 25 100/53 09/14/16 00:00 97.5 4/10/17 20:00 96 09/13/16 19:47 21 09/12/16 08:58 Nasal Cannula 2.00 Intake and Output 09/13/16 09/13/16 09/14/16 08:00 16:00 00:00 Intake Total 738 ml 1335 ml 1198 ml Output Total 300 ml 1400 ml 850 ml Balance 438 ml -65 ml 348 ml Result Diagram: 09/10/16 0535 09/13/16 0304 Objective Remarks Pulse 72, R 14, BP 168/83, Sats 95% Head: Left periorbital edema, left facial droop. Neck: Cervical collar. Airway widely patent. Lungs: Clear, no wheezes or crackles. Comfortable pattern. Heart: RRR, 70s, no JVD. Abdomen: Soft, no guarding. BS active. Extremities: Well perfused. Warm. Neuro: O X 3, alert, conversant. Moves 4 limbs. A/P Problem List: (1) Syncope and collapse ICD Code: R55 Status: Acute (2) Third degree atrioventricular block ICD Code: I44.2 Status: Acute (3) New cerebellar infarct ICD Code: I63.9 Status: Acute (4) C2 cervical fracture ICD Code: S12.100A Status: Acute (5) Hyperlipemia ICD Code: E78.5 Status: Chronic (6) Hypertension ICD Code: I10 Status: Chronic (7) Type 2 diabetes mellitus ICD Code: E11.9 Status: Chronic Assessment and Plan Plan: 1. Atropine prn. 2. Dopamine gtt. 3. Bed rest. 4. Pepcid. 5. DVT Px per neurosurgery. 6. SCDs. 7. Review electrolytes. 8. PPM implantation. 9. Cervical collar for C2 lamina fractures. 10. PPM today Overall impression: Critically ill with reproducible syncope and collapse. Requiring chronotropic support. Recent cerebellar infarct. Need to maintain CPP. For permanent pacer today. Critical Care 36 mins Problem Qualifiers (1) Hypertension: Qualified Code: I10 - Essential hypertension (2) Type 2 diabetes mellitus: Donny Campos MD Sep 14, 2016 09:01
--- NOTE | 2016-09-14 13:11 | PD.CARD.PN ---
Subjective Subjective Remarks No events over night Objective Medications Current Medications Medications (Trade) Dose Ordered Sig/Talha Route Start Time Stop Time Status Last Admin (D50w (Vial) Inj) 25 ml UNSCH PRN IV PUSH 09/09/16 21:00 (Glucagon Inj) 1 mg UNSCH PRN OTHER 09/09/16 21:00 (Zofran Inj) 4 mg Q8HR PRN IV PUSH 09/09/16 21:00 (Prinivil) 10 mg DAILY PO 09/10/16 09:00 09/14/16 08:08 Atorvastatin Calcium 40 mg 40 mg HS PO 09/10/16 21:00 09/13/16 20:28 (Cardene Inj/NS 250 ml Inj) 260 ml @ 0 mls/hr TITRATE IV 09/10/16 12:15 09/10/16 23:19 (Tylenol) 650 mg Q4H PRN PO 09/10/16 19:00 09/14/16 08:08 ([place] 5-325 Mg) 1 tab Q4H PRN PO 09/10/16 19:00 09/13/16 22:41 (Aspirin) 325 mg DAILY PO 09/11/16 10:30 09/14/16 08:32 Senna/Docusate Sodium 2 tab 2 tab BID PO 09/12/16 09:00 09/14/16 08:08 (DOPamine INJ PREMIX) 500 ml @ 9.304 mls/ hr TITRATE IV 09/12/16 08:30 (Brethine Inj) 1 mg UNSCH PRN SQ 09/12/16 08:30 (Atropine Inj) 0.5 mg Q30M PRN IV PUSH 09/12/16 08:30 09/14/16 08:54 Famotidine 20 mg 20 mg Q12H IV PUSH 09/12/16 08:45 09/14/16 08:07 (NS 1000 ml Inj) 1,000 ml @ 84 mls/hr [id number] IV 09/12/16 08:43 09/14/16 09:45 (NS Flush) 2 ml UNSCH PRN IV FLUSH 09/12/16 08:45 (NS Flush) 2 ml BID IV FLUSH 09/12/16 09:00 09/14/16 08:08 (Tylenol) 650 mg Q6H PRN PO 09/12/16 08:45 Miscellaneous Information 1 Q361D XX 09/12/16 08:45 (Chlorhexidine 2% Cloth) 3 pack Taper DAILY@04 TOP 09/13/16 04:00 09/09/17 03:59 09/14/16 04:00 Chlorhexidine Gluconate 3 pack 3 pack UNSCH PRN TOP 09/12/16 08:45 Potassium Chloride 100 ml @ 50 mls/hr Q2H PRN IV 09/12/16 09:00 Potassium Chloride 100 ml @ 50 mls/hr Q2H PRN IV 09/12/16 09:00 Potassium Chloride 100 ml @ 25 mls/hr UNSCH PRN IV 09/12/16 09:00 Potassium Chloride 100 ml @ 50 mls/hr Q2H PRN IV 09/12/16 09:00 (Magnesium Sulfate Inj/NS Inj) 100 ml @ 50 mls/hr UNSCH PRN IV 09/12/16 09:00 Magnesium Oxide 800 mg 800 mg UNSCH PRN PO 09/12/16 09:00 (Magnesium Sulfate Inj/NS Inj) 100 ml @ 50 mls/hr UNSCH PRN IV 09/12/16 09:00 Potassium Phosphate 2000 mg 2,000 mg Q4H PRN PO 09/12/16 09:00 (Sodium Phosphate Inj/NS 250 ml Inj) 250 ml @ 42 mls/hr UNSCH PRN IV 09/12/16 09:00 Potassium Phosphate 2000 mg 2,000 mg UNSCH PRN PO/TUBE 09/12/16 09:00 Potassium Phosphate 30 mmol/ Sodium Chloride 260 ml @ 42 mls/hr UNSCH PRN IV 09/12/16 09:00 Cefazolin Sodium 1000 mg/Sodium Chloride 100 ml @ 0 mls/hr ONCE IV 09/14/16 15:00 09/15/16 14:59 (Vancomycin Inj/ NS 250 ml Inj) 250 ml @ 0 mls/hr ONCE IV 09/14/16 15:00 09/15/16 14:59 (Betadine 5% Antisepsis Kit) 1 applic HS TOPICAL 09/13/16 21:00 09/13/16 21:00 (Bactroban Nasal 2% Oint) 1 applic HS EACH NARE 09/13/16 21:00 09/13/16 21:00 (Chlorhexidine 2% Cloth) 1 pack HS TOPICAL 09/13/16 21:00 09/13/16 21:00 Vital Signs / I&O Vital Signs Date Time Temp Pulse Resp B/P Pulse Ox O2 Delivery O2 Flow Rate FiO2 09/14/16 12:00 97.8 63 19 142/74 100 09/14/16 12:00 63 09/14/16 10:00 83 09/14/16 08:53 35 09/14/16 08:00 97.8 72 24 165/79 98 09/14/16 08:00 72 09/14/16 06:00 55 09/14/16 04:00 54 25 100/53 09/14/16 00:00 97.5 50 14 157/76 09/13/16 21:00 64 09/13/16 20:00 97.5 86 15 140/75 96 09/13/16 20:00 64 09/13/16 19:47 94 21 09/13/16 19:00 60 09/13/16 18:00 82 09/13/16 16:00 69 09/13/16 16:00 97.9 69 28 151/81 97 09/13/16 15:00 96 09/13/16 14:00 74 I/O 09/13/16 09/13/16 09/13/16 09/14/16 09/14/16 09/14/16 07:00 15:00 23:00 07:00 15:00 23:00 Intake Total 738 ml 1335 ml 1198 ml 724 ml Output Total 300 ml 1400 ml 850 ml 550 ml Balance 438 ml -65 ml 348 ml 174 ml Intake Oral 100 ml 660 ml 400 ml IV Total 638 ml 675 ml 798 ml 724 ml Output Urine Total 300 ml 1400 ml 850 ml 550 ml # Bowel Movements 0 0 0 0 Physical Exam GENERAL: NAD, AAOx3 SKIN: Warm and dry. HEAD: Atraumatic. Normocephalic. EYES: Left eye with patch due to diplopia ENT: No nasal bleeding or discharge. Mucous membranes pink and moist. Left sided facial droop NECK: Trachea midline. Neck collar in place CARDIOVASCULAR: Regular rate and rhythm. RESPIRATORY: No accessory muscle use. Clear to auscultation. Breath sounds equal bilaterally. GASTROINTESTINAL: Abdomen soft, non-tender, nondistended. Hepatic and splenic margins not palpable. MUSCULOSKELETAL: Extremities without clubbing, cyanosis, or edema. No obvious deformities. NEUROLOGICAL: Awake and alert. No obvious cranial nerve deficits. Motor grossly within normal limits. Five out of 5 muscle strength in the arms and legs. Normal speech. PSYCHIATRIC: Appropriate mood and affect; insight and judgment normal. Assessment and Plan Problem List: (1) Syncope and collapse (2) Hyperlipemia (3) Hypertension (4) New cerebellar infarct (5) C2 cervical fracture (6) High degree atrioventricular block Assessment and Plan 1) Syncopal episode leading to C2 fracture with subsequent cerebral infarct 2) Symptomatic high degree AV block with syncope while in the hospital, currently on Dopamine drip.... initial event most likely due to AV block 3) For PPM today by Dr. Lange, case discussed Problem Qualifiers (1) Hypertension: Qualified Code: I10 - Essential hypertension Chance Galvan DO Sep 14, 2016 13:11
[2016-09-14] MEDS ORDERED: LIDOCAINE HCL 2% 50 ML VIAL ONE (14:04)
[2016-09-14] MEDS ORDERED: VANCOMYCIN HCL 1000 MG VIAL ONE (14:04)
[2016-09-14] MEDS ORDERED: ceFAZolin INJ 1,000 MG VIAL ONE (14:04)
[2016-09-14] MEDS: VANCOMYCIN INJ 1,000 MG in SODIUM CHLOR 0.9% 250 ML INJ 250 ML IV SCH (14:35)
[2016-09-14] MEDS ORDERED: traMADol HCL 50 MG TAB PO PRN (15:15)
[2016-09-14] MEDS ORDERED: ZOLPIDEM TARTRATE 5 MG TAB PO PRN (15:15)
[2016-09-14] MEDS ORDERED: PROPOFOL 200 MG/20 ML AMP IV ONE (15:30)
--- NOTE | 2016-09-14 16:28 | RADRPT ---
EXAM DATE/TIME: 09/14/2016 15:59 [place] COMPARISON: No previous studies available for comparison. INDICATIONS : Post pacemaker insertion, evaluate for pneumothorax MEDICAL HISTORY : cervical spine fracture SURGICAL HISTORY : Pacemaker. cervical spine ENCOUNTER: Initial ACUITY: 1 day PAIN SCORE: 4/10 LOCATION: Bilateral chest FINDINGS: Portable AP expiratory view of the chest demonstrates a normal-sized cardiac silhouette. Right chest wall cardiac pacing device is present with the tips overlying the expected location of the right hear t on this frontal view. No pneumothorax is visualized. No pleural effusion or airspace consolidation is seen. CONCLUSION: No pneumothorax or acute finding is identified following cardiac pacing device placement. Chuy Moon MD on September 14, 2016 at 16:26 Board Certified Radiologist. This report was verified electronically.
[2016-09-14] MEDS: MUPIROCIN 2% OINT 1 APPLIC/GM SYR EACH NARE SCH (20:02)
[2016-09-14] MEDS: ATORVASTATIN 40 MG TAB PO SCH (20:02)
[2016-09-14] MEDS: CHLORHEXIDINE GLUCONATE 2 % 1 PACK (2 CLOTHS) TOPICAL SCH (21:00)
[2016-09-15] VITALS (18 sets, daily range): BP systolic 138–189; BP diastolic 58–88; PULSE 66–94; RESP 14–22; TEMP 97.8–98.7; O2SAT 93–99
[2016-09-15] MEDS ORDERED: VANCOMYCIN INJ 1,000 MG in SODIUM CHLOR 0.9% 250 ML INJ 250 ML IV ONE ×2 (03:00→20:00)
[2016-09-15] MEDS: CHLORHEXIDINE GLUCONATE 2 % 1 PACK (2 CLOTHS) TOP SCH (04:00)
[2016-09-15 05:02] LABS: BICARBONATE 23.8 MEQ/L (21.0-32.0)
[2016-09-15] MEDS: ACETAMINOPHEN/HYDROcodone 325 MG/5 MG TAB PO PRN (05:10)
--- NOTE | 2016-09-15 06:14 | MP ---
cc: ROSEMARIE SENA M.D. DATE OF SURGERY 09/14/2016 PROCEDURE Dual-chamber permanent pacemaker implantation via the right subclavian vein. INDICATIONS Symptomatic complete heart block. OPERATIVE NOTES The patient was brought to the operating suite in a fasting state after having signed informed consent. The right upper chest was prepped and draped as per policy and anesthetized with 1% lidocaine. Central venous access was obtained twice via the right subclavian vein using modified Seldinger technique. A transverse incision was made parallel to the two guidewires and using blunt dissection a subcutaneous pocket was formed down to the pectoralis fascia. Over the more lateral guidewire a 6-Algerian sheath was placed and through this sheath a ventricular active fixation lead was introduced and its tip positioned in the right ventricular apex where a good current of injury, stimulation threshold (0.6 volts) and sensitivity (9.7 mV) were demonstrated. This lead was secured into place using 2-0 silk ties down to the pectoralis fascia. Over the remaining guidewire another 6-Algerian sheath was placed and through this sheath an atrial active fixation lead was introduced and its tip positioned in the right atrial appendage where a good current of injury, stimulation threshold (0.8 volts) and sensitivity (3.3 mV) were demonstrated. This lead was secured into place using 2-0 silk ties down to the pectoralis fascia. The leads were then connected to the pacemaker generator which is a Biotronik Eluna device. The leads and the generator were placed back into the subcutaneous pocket which was closed using 3-0 Vicryl interrupted stitches in two layers to close the subcutaneous tissue and then 4-0 Monocryl running stitch to close the subcuticular tissue. Overlapping Steri-Strips and a pressure dressing were applied. There were no apparent immediate complications. A portable chest x-ray is pending at the time of this dictation. CONCLUSIONS Successful dual-chamber permanent pacemaker implantation via the right subclavian vein using a Biotronik MRI-compatible Eluna pacemaker generator. MD WANDA Scott/JOSÉ LUIS /3:12 PM /6:09 AM KERRI
[2016-09-15] MEDS: INSULIN ASPART SUPPLEMENTAL SCALE SQ SCH ×4 (07:00→21:00)
[2016-09-15] MEDS: SODIUM CHLOR 0.9% 1000 ML INJ 1,000 ML IV SCH ×2 (08:00→20:08)
[2016-09-15] MEDS: DOCUSATE SODIUM 50 MG/SENNA 8.6 MG TAB PO SCH ×2 (08:14→21:25)
--- NOTE | 2016-09-15 08:21 | PD.CARD.PN ---
Subjective Subjective Remarks Denies pain, dyspnea, dizziness. Objective Medications Item Value Date Time Lisinopril 10 mg 09/10/16 0900 (Prinivil) DAILY/PO 09/14/16 0808 Atorvastatin 40 mg 09/10/16 2100 Calcium HS/PO 09/14/162001 (Lipitor) Aspirin 325 mg 09/11/16 1030 (Aspirin) DAILY/PO 09/14/16 0832 Vital Signs / I&O Vital Signs Date Time Temp Pulse Resp B/P Pulse Ox O2 Delivery O2 Flow Rate FiO2 09/15/16 06:10 15 09/15/16 06:00 71 09/15/16 04:00 98.7 70 20 150/58 96 09/15/16 04:00 71 09/15/16 02:00 71 09/15/16 00:00 71 09/15/16 00:00 97.9 66 16 138/80 97 09/15/16 00:00 71 09/14/16 23:00 71 09/14/16 22:00 71 09/14/16 21:00 70 09/14/16 20:00 74 09/14/16 20:00 98.0 74 16 151/86 97 09/14/16 18:00 68 09/14/16 16:00 97.6 91 22 142/76 98 09/14/16 16:00 91 09/14/16 13:30 61 09/14/16 13:30 97.8 61 19 158/87 100 09/14/16 12:00 97.8 63 19 142/74 100 09/14/16 12:00 63 09/14/16 10:00 83 09/14/16 08:53 35 I/O 09/14/16 09/14/16 09/14/16 09/15/16 09/15/16 09/15/16 07:00 15:00 23:00 07:00 15:00 23:00 Intake Total 724 ml 627 ml 1286 ml 908 ml Output Total 550 ml 800 ml 1000 ml 800 ml Balance 174 ml -173 ml 286 ml 108 ml Intake Oral 450 ml 250 ml IV Total 724 ml 627 ml 836 ml 658 ml Output Urine Total 550 ml 800 ml 1000 ml 800 ml # Voids 4 2 # Bowel Movements 0 0 Physical Exam GENERAL: Well developed, well nourished. No acute distress. HEENT: C collar in place. CHEST: Lungs clear to auscultation anteriorly. CARDIAC: Regular rate and rhythm without S3, S4, or murmur. Pacer site clean, dry, intact, nontender, no hematoma. ABDOMEN: Soft, nontender, no hepatosplenomegaly. Bowel sounds present. EXTREMITIES: No clubbing, cyanosis, or edema. Laboratory Laboratory Tests Test 09/15/16 03:28 Sodium Level 142 MEQ/L Potassium Level 4.0 MEQ/L Chloride Level 109 MEQ/L Carbon Dioxide Level 23.8 MEQ/L Anion Gap 9 MEQ/L Blood Urea Nitrogen 17 MG/DL Creatinine 0.84 MG/DL Estimat Glomerular Filtration 89 ML/MIN Rate Random Glucose 108 MG/DL Calcium Level 8.5 MG/DL Imaging Last 48 hours Impressions Chest X-Ray 09/14/16 0000 Signed Impressions: Service Date/Time: Wednesday, September 14, 2016 15:59 - CONCLUSION: No pneumothorax or acute finding is identified following cardiac pacing device placement. Chuy Moon MD Assessment and Plan Problem List: (1) Status post placement of cardiac pacemaker Assessment and Plan: Stable overnight. Pacer site OK. Awaiting pacer re- interrogation by [id number] rep. (2) Hypertension Assessment and Plan: Mildly elevated BP's. Continue to monitor post CVA. Cont Lisinopril. (3) Hyperlipidemia Assessment and Plan: Good lipid profile this admission. Continue atorvastatin. Code Status full code Discussed Condition With patient Problem Qualifiers (1) Hypertension: Qualified Code: I10 - Essential hypertension (2) Hyperlipidemia: Qualified Code: E78.2 - Mixed hyperlipidemia Edis Lange MD Sep 15, 2016 08:21
[2016-09-15] MEDS: LISINOPRIL 10 MG TAB PO SCH (08:46)
[2016-09-15] MEDS: FAMOTIDINE 20 MG/2 ML VIAL IV PUSH SCH ×2 (08:46→21:25)
[2016-09-15] MEDS: SODIUM CHLORIDE 0.9% FLUSH 10 ML FLUSH IV FLUSH SCH ×2 (08:46→21:00)
[2016-09-15] MEDS: ASPIRIN 325 MG TAB PO SCH (08:51)
--- NOTE | 2016-09-15 08:59 | HHI.CCPN ---
Subjective Remarks/Hospital Course Mr. Doty is a pleasant 76-year-old male with a history of type 2 diabetes mellitus (blood sugars checked at home once a week range 130s to 140s), melanoma , hyperlipidemia, and hypertension who is visiting from [place] and was brought to [facility] in [place] on 09/08/2016 after experiencing a syncopal episode. The patient states he was sitting on a kitchen bar stool drinking coffee when he suddenly became diaphoretic and dizzy. He went to get a wet washcloth to put on the back of his neck and that is lasting he remembers. He was estimated to be unconscious for about 30 seconds. Prior to syncope, he denies chest pain, shortness of breath, and nausea. He also denies any weakness in his legs and arms, blurred vision, or headache. At [facility], he was diagnosed with first-degree AV block, intermittent third-degree AV block, and C2 cervical spine fracture and placed in a hard neck brace. See imaging section for full summary of radiological findings from prior hospitalization. Mr. Doty says this morning, he developed numbness on the left side of his face with inability to open his left thigh wide. 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 The patient denies any prior history of CVA, TIA, or heart disease. The patient's only reported at the time of visit is that his neck brace is not fitting well and is interfering with his ability to open and close his mouth. EKG from [facility] reviewed and shows first-degree AV block Subsequently evaluated by Neurosurgery, Cardiology. 09/12: Today developed syncope again with pulse 20s. Placed back in bed from chair. Completer AV block vs 2nd degree. Responded to atropine -> NSR with 1st degree block. Start on low dose dopamine. Fully responsive after but memory hazy. 09/13: Remained NSR all night since dopamine initiated. 09/14: Two witnessed episodes of syncope and collapse. Heart block and severe bradycardia well documented. On dopamine for rate support with good blood pressure in the context of recent CVA. PPM today. 09/15: Pacer capture may not be 100%. Will be interrogated today. Stable hemodynamics. Objective Vital Signs Date Time Temp Pulse Resp B/P Pulse Ox O2 Delivery O2 Flow Rate FiO2 09/15/16 06:10 15 09/15/16 06:00 71 09/15/16 04:00 98.7 150/58 96 09/13/16 19:47 21 09/12/16 08:58 Nasal Cannula 2.00 Intake and Output 09/14/16 09/14/16 09/15/16 08:00 16:00 00:00 Intake Total 724 ml 627 ml 1286 ml Output Total 550 ml 800 ml 1000 ml Balance 174 ml -173 ml 286 ml Result Diagram: 09/15/16 0328 Objective Remarks Pulse 73, R 14, BP 171/84, Sats 95% Head: Left periorbital edema, left facial droop. Neck: Cervical collar. Airway widely patent. Lungs: Clear, no wheezes or crackles. Comfortable pattern. Heart: RRR, 70s, no JVD. Occas PMB, pause. Abdomen: Soft, no guarding. BS active. Extremities: Well perfused. Warm. Neuro: O X 3, alert, conversant. Moves 4 limbs. Speech with more clarity. A/P Problem List: (1) Syncope and collapse ICD Code: R55 Status: Acute (2) Third degree atrioventricular block ICD Code: I44.2 Status: Acute (3) New cerebellar infarct ICD Code: I63.9 Status: Acute (4) C2 cervical fracture ICD Code: S12.100A Status: Acute (5) Hyperlipemia ICD Code: E78.5 Status: Chronic (6) Hypertension ICD Code: I10 Status: Chronic (7) Type 2 diabetes mellitus ICD Code: E11.9 Status: Chronic Assessment and Plan Plan: 1. Atropine prn. 2. Dopamine gtt. 3. Bed rest. 4. Pepcid. 5. DVT Px per neurosurgery. 6. SCDs. 7. Review electrolytes. 8. PPM implantation. 9. Cervical collar for C2 lamina fractures. 10. PPM interrogation. Overall impression: Stable but need PPM assessed. Problem Qualifiers (1) Hypertension: Qualified Code: I10 - Essential hypertension (2) Type 2 diabetes mellitus: Donny Campos MD Sep 15, 2016 08:59
--- NOTE | 2016-09-15 09:03 | HHI.NSPN ---
History Chief Complaint: Difficulty sleeping last night. Interval History A 76-year-old gentleman who had a syncopal episode two days ago and fell and hit his head. He was taken to [facility] emergency room and admitted. He was found to have C2 fractures and was placed in a collar and was also bradycardic with from what the executive candidate developer informs me from [facility] a third degree block and was contemplating needing pacemaker at some point. He had developed nystagmus and left-sided facial droop yesterday morning along with unsteadiness in his gait and neurology evaluated the patient and workup with an MRI scan revealed left cerebellar hemisphere infarct. For some reason, the patient was not accepted by the neurosurgery staff at [facility] and he was sent to [facility] for further management. He relates neck discomfort, but with the collar this is better. Denies any numbness or paresthesias in the face, arms or legs. He has had a left facial droop along with a left eye droop and feels lightheaded and unsteady when attempting to walk. Denies any previous syncopal episodes or any cardiac issues. Workup included a head CT scan this morning that reveals a left hemisphere multifocal cerebellar infarct with no edema or compression of the fourth ventricle or any associated hydrocephalus. CT of the cervical spine reveals a fracture involving the left facet/pedicle on the right lamina with maintained alignment of C1, C2, C3 with no subluxation noted. CT angiogram of the neck to assess for any vertebral artery dissection or thrombus is currently pending. 09/15/16: Pt awake and alert. sitting up in bed. States difficulty sleeping last night. No headache. No nausea or vomiting. No numbness or paresthesias. No pain. Review of Systems General: Negative for: fever, chills, insomnia Respiratory: Negative for: shortness of breath, cough, sputum Cardiovascular: Negative for: chest pain Gastrointestinal: Negative for: nausea, vomitting, diarrhea, constipation Exam Results Vital Signs Date Time Temp Pulse Resp B/P Pulse Ox O2 Delivery O2 Flow Rate FiO2 09/15/16 06:10 15 09/15/16 06:00 71 09/15/16 04:00 98.7 150/58 96 09/13/16 19:47 21 09/12/16 08:58 Nasal Cannula 2.00 Intake and Output 09/14/16 09/14/16 09/15/16 08:00 16:00 00:00 Intake Total 724 ml 627 ml 1286 ml Output Total 550 ml 800 ml 1000 ml Balance 174 ml -173 ml 286 ml Physical Examination Resp: CTA bilaterally Heart: NSR no murmurs Abd: Soft positive bs Skin: Right upper chest steri strips in place from pacemaker Muscle: Moves LEs and LUE well. RUE in sling from pacemaker placement. Baggage Porter Head right hand well. Cervical collar in place. Neuro: Pt awake and alert. Follows commands well. Speech appropriate. Pupils equal. Lab, Micro, Other Results Last Impressions Chest X-Ray 09/14/16 0000 Signed Impressions: Service Date/Time: Wednesday, September 14, 2016 15:59 - CONCLUSION: No pneumothorax or acute finding is identified following cardiac pacing device placement. Chuy Moon MD Neck CTA 09/10/16 0000 Signed Impressions: Service Date/Time: Saturday, September 10, 2016 10:57 - CONCLUSION: 1. There is focal intimal contusion and a small amount of thrombus within the left vertebral artery at the level of the patient's C2 lamina fracture. The more cephalad portion of left vertebral just prior to its junction with the basilar demonstrates thrombus within it as well as no definite dissection is seen. There is infarct in the left cerebellar hemisphere. 2. The right vertebral and basilar are patent. 3. Atherosclerotic plaquing but no hemodynamically significant stenosis evident within the carotid circulation. Kumar Briceño MD Head CT 09/10/16 0000 Signed Impressions: Service Date/Time: Saturday, September 10, 2016 10:54 - CONCLUSION: 1. Encephalomalacic infarct in the left cerebellar hemisphere. 2. No acute intracranial hemorrhage identified. Kumar Briceño MD Cervical Spine CT 09/10/16 0000 Signed Impressions: Service Date/Time: Saturday, September 10, 2016 11:05 - CONCLUSION: 1. The examination demonstrates a fracture of both sides of the lamina of C2. The vertebral body itself appears intact. 2. CT angiography to assess the left vertebral artery is pending. Kumar Briceño MD Laboratory Tests Test 09/15/16 03:28 Sodium Level 142 MEQ/L Potassium Level 4.0 MEQ/L Chloride Level 109 MEQ/L Carbon Dioxide Level 23.8 MEQ/L Anion Gap 9 MEQ/L Blood Urea Nitrogen 17 MG/DL Creatinine 0.84 MG/DL Estimat Glomerular Filtration 89 ML/MIN Rate Random Glucose 108 MG/DL Calcium Level 8.5 MG/DL 09/14/16 09/14/16 09/15/16 15:00 23:00 07:00 Intake Total 627 ml 1286 ml 908 ml Output Total 800 ml 1000 ml 800 ml Balance -173 ml 286 ml 108 ml Intake Oral 450 ml 250 ml IV Total 627 ml 836 ml 658 ml Output Urine Total 800 ml 1000 ml 800 ml # Voids 4 2 # Bowel Movements 0 Medical Decision Making Impression and Plan A: 76 y/o M with C2 left facet/pedicle fracture along with a right laminar fracture with maintained alignment. 2. Left cerebellar hemisphere infarct, rule out any vertebral artery dissection or stenosis. 3. Bradycardia likely the source of his syncopal episode and fall. s/p pacemaker placement 4. Diabetes mellitus. 5. Unregulated hypertension. PLAN Dr. Cardoza has discussed the following plan with pt and : Cervical spine x- rays every six weeks to assess for fracture healing and cervical spine alignment continue with cervical collar used for the next 3-4 months. Management of the cerebellar infarct and any associated vertebral artery involvement per the neurology service. Speech therapy, physical and occupational therapy to work on rehabilitation given his unsteadiness in his gait. The informed Dr. Cardoza that once he is medically stable then she wants to take him back home in [place] where they will follow up with a local neurosurgeon and other specialists as needed. Eben Hoskins Sep 15, 2016 09:03
--- NOTE | 2016-09-15 09:03 | PD.TRANSFR ---
Transfer Summary Admission Date Sep 09, 2016 at 19:51 Transfer Date: Sep 16, 2016 Admitting Diagnosis Syncope, C2 fracture, intermittent third degree heart block, acute left inferior cerebellar infarct Diagnoses: (1) Syncope and collapse (2) New cerebellar infarct (3) C2 cervical fracture (4) Third degree atrioventricular block (5) Type 2 diabetes mellitus (6) Hyperlipemia (7) Hypertension Significant Findings Syncope and collapse due to bradycardia / heart block. Required dopamine for pulse rate support after a second episode of syncope in the ISC. PPP placed , but pacer not working 100%. PPM to be repositioned today. Developed cerebellar CVA around time of hypotension and collapse. Objective Vital Signs Date Time Temp Pulse Resp B/P Pulse Ox O2 Delivery O2 Flow Rate FiO2 09/15/16 06:10 15 09/15/16 06:00 71 09/15/16 04:00 98.7 150/58 96 09/13/16 19:47 21 09/12/16 08:58 Nasal Cannula 2.00 Intake and Output 09/14/16 09/14/16 09/15/16 08:00 16:00 00:00 Intake Total 724 ml 627 ml 1286 ml Output Total 550 ml 800 ml 1000 ml Balance 174 ml -173 ml 286 ml Result Diagram: 09/15/16 0328 Objective Remarks Pulse 73, R 14, BP 171/84, Sats 95% Head: Left periorbital edema, left facial droop. Neck: Cervical collar. Airway widely patent. Lungs: Clear, no wheezes or crackles. Comfortable pattern. Heart: RRR, 70s, no JVD. Occas PMB, pause. Abdomen: Soft, no guarding. BS active. Extremities: Well perfused. Warm. Neuro: O X 3, alert, conversant. Moves 4 limbs. Speech with more clarity. A/P Problem List: (1) Syncope and collapse ICD Code: R55 Status: Acute (2) Third degree atrioventricular block ICD Code: I44.2 Status: Acute (3) New cerebellar infarct ICD Code: I63.9 Status: Acute (4) C2 cervical fracture ICD Code: S12.100A Status: Acute (5) Hyperlipemia ICD Code: E78.5 Status: Chronic (6) Hypertension ICD Code: I10 Status: Chronic (7) Type 2 diabetes mellitus ICD Code: E11.9 Status: Chronic Assessment and Plan Plan: 1. Atropine prn. 2. Dopamine gtt. 3. Bed rest. 4. Pepcid. 5. DVT Px per neurosurgery. 6. SCDs. 7. Review electrolytes. 8. PPM implantation. 9. Cervical collar for C2 lamina fractures. 10. PPM interrogation. Overall impression: Stable but need PPM assessed. Problem Qualifiers (1) Hypertension: Qualified Code: I10 - Essential hypertension (2) Type 2 diabetes mellitus: Donny Campos MD Sep 15, 2016 09:03
--- NOTE | 2016-09-15 09:05 | RADRPT ---
EXAM DATE/TIME: 09/15/2016 08:48 [facility] COMPARISON: CHEST SINGLE AP, September 14, 2016, 15:59. EXTERNAL COMPARISON : INDICATIONS : reassess atrial lead. MEDICAL HISTORY : None. SURGICAL HISTORY : Pacemaker. ENCOUNTER: Subsequent ACUITY: 3 days PAIN SCORE: 0/10 LOCATION: Bilateral chest FINDINGS: The lungs are clear. Mild cardiomegaly. Aorta is mildly tortuous. A dual-lead pacer from a right subc lavian transvenous approach is identified without obvious lead discontinuity. CONCLUSION: No acute disease. Jonny Rosario MD on September 15, 2016 at 9:02 Board Certified Radiologist. This report was verified electronically.
[2016-09-15] MEDS ORDERED: VANCOMYCIN HCL 1000 MG VIAL ONE (13:28)
[2016-09-15] MEDS ORDERED: SODIUM CHLOR 0.9% 250 ML INJ 250 ML ONE (13:29)
[2016-09-15] MEDS ORDERED: ceFAZolin INJ 1,000 MG VIAL ONE (13:29)
[2016-09-15] MEDS ORDERED: LIDOCAINE HCL 2% 50 ML VIAL ONE (13:32)
[2016-09-15] MEDS ORDERED: MIDAZOLAM HCL 2 MG/2 ML VIAL ONE (13:41)
[2016-09-15] MEDS: VANCOMYCIN INJ 1,000 MG in SODIUM CHLOR 0.9% 250 ML INJ 250 ML IV SCH (13:41)
[2016-09-15] MEDS ORDERED: traMADol HCL 50 MG TAB PO PRN (15:00)
[2016-09-15] MEDS: POVIDONE IODINE 5% (ANTISEPSIS KIT) 4 APPLICATIONS TOPICAL SCH (21:00)
[2016-09-15] MEDS: CHLORHEXIDINE GLUCONATE 2 % 1 PACK (2 CLOTHS) TOPICAL SCH (21:00)
[2016-09-15] MEDS: MUPIROCIN 2% OINT 1 APPLIC/GM SYR EACH NARE SCH (21:26)
[2016-09-15] MEDS: ATORVASTATIN 40 MG TAB PO SCH (21:26)
[2016-09-16] VITALS: PULSE 73
[2016-09-16] MEDS: CHLORHEXIDINE GLUCONATE 2 % 1 PACK (2 CLOTHS) TOP SCH (00:11)
[2016-09-16 03:00] VITALS: BP 173/84; PULSE 66; RESP 21; TEMP 98; O2SAT 96
[2016-09-16 04:00] VITALS: PULSE 73
[2016-09-16] MEDS: INSULIN ASPART SUPPLEMENTAL SCALE SQ SCH ×2 (06:33→11:00)
[2016-09-16 08:00] VITALS: BP 199/122; PULSE 70; RESP 12; TEMP 97.5; O2SAT 95
[2016-09-16] MEDS: SODIUM CHLOR 0.9% 1000 ML INJ 1,000 ML IV SCH (08:03)
[2016-09-16 08:05] VITALS: O2SAT 96
[2016-09-16] MEDS: SODIUM CHLORIDE 0.9% FLUSH 10 ML FLUSH IV FLUSH SCH (09:00)
[2016-09-16] MEDS: ASPIRIN 325 MG TAB PO SCH (09:08)
[2016-09-16] MEDS: FAMOTIDINE 20 MG/2 ML VIAL IV PUSH SCH (09:08)
[2016-09-16] MEDS: DOCUSATE SODIUM 50 MG/SENNA 8.6 MG TAB PO SCH (09:08)
[2016-09-16] MEDS: LISINOPRIL 10 MG TAB PO SCH (09:08)
[2016-09-16 12:00] VITALS: BP 167/96; PULSE 76; RESP 15; TEMP 98.4; O2SAT 98
--- NOTE | 2016-09-16 12:14 | MP ---
cc: ROSEMARIE SENA M.D. DATE OF SURGERY 09/15/2016 PROCEDURE Atrial lead repositioning. OPERATIVE NOTES Earlier today the patient's atrial lead was found to be malfunctioning. Chest x-ray showed the lead to be dislodged. The patient was brought to the operating suite in the fasting state after having signed informed consent. The right upper chest was prepped and draped as per policy and anesthetized with 1% lidocaine. An incision was made over the preexisting incision and the generator freed from the subcutaneous pocket. The atrial lead was disconnected. The suture sleeve was loosened. The lead was then repositioned in the right atrial appendage where a good current of injury, stimulation threshold (1.0 volts) and sensitivity (4.9 mV) were demonstrated. This lead was secured into place using 2-0 silk ties down to the pectoralis fascia. The lead was then reconnected to the pacemaker generator. The pocket was then closed using 3-0 Vicryl interrupted stitches in two layers to close the subcutaneous tissue and then 4-0 Monocryl running stitch to close the subcuticular tissue. Overlapping Steri-Strips and a dressing were applied. There were no apparent immediate complications. CONCLUSION Successful repositioning of a dislodged recently placed atrial pacemaker lead. MD WANDA Scott/SSB /2:52 PM /12:10 PM
[2016-09-16] MEDS ORDERED: FAMO20TA2 PO (14:00)
[2016-09-16] MEDS ORDERED: HYDR-3516 PO (14:00)
[2016-09-16] MEDS ORDERED: ACET325T PO (14:00)
[2016-09-16] MEDS ORDERED: LISI10TA3 PO (14:00)
[2016-09-16] MEDS ORDERED: IPRASOL INH (14:00)
[2016-09-16] MEDS ORDERED: AMBI5TAB PO (14:00)
[2016-09-16] MEDS ORDERED: ATOR40TA16 PO (14:00)
[2016-09-16] MEDS ORDERED: MILKSUS PO (14:00)
[2016-09-16] MEDS ORDERED: BACTOIN EACH NARE (14:00)
[2016-09-16] MEDS ORDERED: ASPI325T PO (14:00)
[2016-09-16] MEDS ORDERED: NOVOLOGP2 SQ (14:00)
--- NOTE | 2016-09-16 14:04 | HHI.DS ---
Discharge Summary Admission Date Sep 09, 2016 at 19:51 Discharge Date: Sep 16, 2016 Admitting Diagnosis Syncope, C2 fracture, intermittent third degree heart block, acute left inferior cerebellar infarct (1) Syncope and collapse ICD Code: R55 Diagnosis: Principal (2) New cerebellar infarct ICD Code: I63.9 (3) C2 cervical fracture ICD Code: S12.100A Diagnosis: Principal (4) Third degree atrioventricular block ICD Code: I44.2 (5) Type 2 diabetes mellitus ICD Code: E11.9 (6) Hyperlipemia ICD Code: E78.5 (7) Hypertension ICD Code: I10 Procedures 09/14/2016 Dual-chamber permanent pacemaker implantation via the right subclavian vein. 09/15/2016 Atrial lead repositioning. Brief History - From Admission Mr. Doty is a pleasant 76-year-old male with a history of type 2 diabetes mellitus (blood sugars checked at home once a week range 130s to 140s), melanoma , hyperlipidemia, and hypertension who is visiting from [place] and was brought to [facility] in [place] on 09/08/2016 after experiencing a syncopal episode. The patient states he was sitting on a kitchen bar stool drinking coffee when he suddenly became diaphoretic and dizzy. He went to get a wet washcloth to put on the back of his neck and that is lasting he remembers. He was estimated to be unconscious for about 30 seconds. Prior to syncope, he denies chest pain, shortness of breath, and nausea. He also denies any weakness in his legs and arms, blurred vision, or headache. At [facility], he was diagnosed with first-degree AV block, intermittent third-degree AV block, and C2 cervical spine fracture and placed in a hard neck brace. See imaging section for full summary of radiological findings from prior hospitalization. Mr. Doty says this morning, he developed numbness on the left side of his face with inability to open his left thigh wide. 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 The patient denies any prior history of CVA, TIA, or heart disease. The patient's only reported at the time of visit is that his neck brace is not fitting well and is interfering with his ability to open and close his mouth. EKG from [facility] reviewed and shows first-degree AV block Laboratory studies from [facility] show mild elevation in white blood count at 10.1 on 09/08/2016 which was likely secondary to stress response. We'll recheck CBC in a.m. BMP not available for review - will check in a.m. - no mention of electrolyte abnormalities in any of the records. Serial Trop I were within normal parameters. Triglycerides 63, cholesterol 1:30, LDL 69, HDL 48, cholesterol/HDL ratio 2.7. . CBC/BMP: 09/15/16 0328 Significant Findings Laboratory Tests Test 09/15/16 03:28 Chloride Level 109 MEQ/L (98-107) Random Glucose 108 MG/DL (74-106) Imaging Last Impressions Chest X-Ray 09/15/16 0000 Signed Impressions: Service Date/Time: Thursday, September 15, 2016 08:48 - CONCLUSION: No acute disease. Jonny Rosario MD Neck CTA 09/10/16 0000 Signed Impressions: Service Date/Time: Saturday, September 10, 2016 10:57 - CONCLUSION: 1. There is focal intimal contusion and a small amount of thrombus within the left vertebral artery at the level of the patient's C2 lamina fracture. The more cephalad portion of left vertebral just prior to its junction with the basilar demonstrates thrombus within it as well as no definite dissection is seen. There is infarct in the left cerebellar hemisphere. 2. The right vertebral and basilar are patent. 3. Atherosclerotic plaquing but no hemodynamically significant stenosis evident within the carotid circulation. Kumar Briceño MD Head CT 09/10/16 0000 Signed Impressions: Service Date/Time: Saturday, September 10, 2016 10:54 - CONCLUSION: 1. Encephalomalacic infarct in the left cerebellar hemisphere. 2. No acute intracranial hemorrhage identified. Kumar Briceño MD Cervical Spine CT 09/10/16 0000 Signed Impressions: Service Date/Time: Saturday, September 10, 2016 11:05 - CONCLUSION: 1. The examination demonstrates a fracture of both sides of the lamina of C2. The vertebral body itself appears intact. 2. CT angiography to assess the left vertebral artery is pending. Kumar Briceño MD PE at Discharge GENERAL: This is a well-nourished, well-developed patient, in no apparent distress. NECK: C collar in place. CARDIOVASCULAR: Regular rate and rhythm RESPIRATORY: Clear to auscultation. Breath sounds equal bilaterally. No wheezes , rales, or rhonchi. GASTROINTESTINAL: Abdomen soft, non-tender, nondistended. Normal active bowel sounds MUSCULOSKELETAL: Extremities without clubbing, cyanosis, or edema. NEURO: Alert & Oriented x3 to person, place, time. Moves all ext x4 with 5/5 steng in extremities x 4. Normal cerebellar testing. Pt update on day of discharge Mr. Doty is doing well. Sitting in his chair. No acute concerns. Tolerating liquids and soft food well. Had BM yesterday. No fever, chills. Neurosurgery is okay with patient's discharge to [facility]. Hospital Course Mr. Doty is a pleasant 76 year old male with a history of DM type 2, HTN, HLD who was initially admitted to [facility] due to an episode of syncope. He was found to have C2 fractures and also found to have bradycardia with intermittent 3rd degree AV block. He developed nystagmus and left sided facial droop as well as gait unsteadiness. Neurology work indicated left cerebellar hemisphere infarction. He was subsequently sent to [facility]. During this hospitalization, patient developed syncopal episodes in the ICU with pulse rate in the 20s. He was started on low dose dopamine. Patient underwent Permanent Pacemaker placement on 09/14/2016. Device interrogation on 05/2017 showed atrial lead malfunction. CXR showed lead dislodgement. Patient underwent another cardiology procedure to reposition atrial lead. On 09/16/2016, patient reports feeling well. Device interrogation showed expected device performance. Patient was earlier evaluated by [facility] and was accepted. Discussed with Cardiology as well as Neurosurgery prior to discharge. Also discussed with [facility] lifeline representatives. Patient was subsequently discharged to [facility]. Pt Condition on Discharge: Good Discharge Disposition: Rehab Inpatient Discharge Time: > 30 minutes Discharge Instructions DIET: Follow Instructions for: Heart Healthy Diet Speech Therapy-Diet Recommends: Mechanical Soft Additional Diet Instructions: Glucerna supplement with each meal. Activities you can perform: Regular-No Restrictions Follow up Referrals: Neurosurgery - 4 Weeks with Kelvin Cardoza MD New Orders: X-RAY SPINE CERVICAL COMPLETE - 6 Weeks New Medications: Amlodipine (Amlodipine) 5 Mg Tab 5 MG PO DAILY Blood Pressure Management #30 Ref 0 TAB Famotidine (Famotidine) 20 Mg Tab 20 MG PO BID Reflux #60 Ref 0 TAB Insulin Aspart Inj (Novolog Inj) 1,000 Unit/10 Ml Vial 1-9 UNITS SQ ACHS Max dose at bedtime:( )units; sugars less than 70,(0)units; sugars 150-199,(1) unit; sugars 200-249,(3) units; sugars 250-299,(5) units; sugars 300-349,(7) units; sugars greater than 349,(9) units Blood Sugar Management #10 Ref 0 ML Magnesium Hydroxide Liq (Milk of Magnesia Liq) 400 Mg/5 Ml Susp 30 ML PO DAILY PRN CONSTIPATION #1 Ref 0 BOTTLE Acetaminophen (Acetaminophen) 325 Mg Tab 650 MG PO Q4H PRN PAIN 1-5 #30 TAB Aspirin (Aspirin) 325 Mg Tab 325 MG PO DAILY Blood Clot Prevention #30 TAB Atorvastatin (Atorvastatin) 40 Mg Tab 40 MG PO HS Cholesterol Management #30 TAB Hydrocodone-Acetaminophen (Hydrocodone-Acetaminophen) 5-325 mg Tab 1 TAB PO Q4H PRN PAIN 6-10 #30 TAB Ipratropium-Albuterol Neb (Duoneb) 0.5-2.5 Mg/3 Ml Neb 1 AMPULE INH Q4HR NEB PRN WHEEZING #10 ML Lisinopril (Lisinopril) 10 Mg Tab 10 MG PO DAILY Blood Pressure Management #30 TAB Mupirocin Nasal Oint (Bactroban Nasal Oint) 2% Oint 1 APPLIC EACH NARE HS Infection Days 10 TUBE Zolpidem (Ambien) 5 Mg Tab 5 MG PO HS PRN INSOMNIA #30 TAB Melani Dallas DO Sep 16, 2016 14:04
[2016-09-16] MEDS ORDERED: AMLO5TAB2 PO (14:05)
--- NOTE | 2016-09-16 14:45 | PD.CARD.PN ---
Subjective Subjective Remarks Denies incisional pain, dyspnea, palpitations, dizziness. Objective Medications Item Value Date Time Aspirin 325 mg 09/11/16 1030 (Aspirin) DAILY/PO 09/16/16 0908 Atorvastatin 40 mg 09/10/16 2100 Calcium HS/PO 09/15/16 2126 (Lipitor) Lisinopril 10 mg 09/10/16 0900 (Prinivil) DAILY/PO 09/16/16 0908 Vital Signs / I&O Vital Signs Date Time Temp Pulse Resp B/P Pulse Ox O2 Delivery O2 Flow Rate FiO2 09/16/16 12:00 98.4 76 15 167/96 98 09/16/16 12:00 76 09/16/16 08:05 96 09/16/16 08:00 70 09/16/16 08:00 97.5 70 12 199/122 95 09/16/16 04:00 73 09/16/16 03:00 98.0 66 21 173/84 96 09/16/16 00:00 73 09/15/16 23:00 98.1 71 15 170/79 96 09/15/16 20:00 86 09/15/16 19:30 98 09/15/16 19:00 98.6 94 20 189/88 99 09/15/16 17:00 86 09/15/16 16:00 80 09/15/16 15:00 82 09/15/16 15:00 98.4 82 15 165/76 93 I/O 09/15/16 09/15/16 09/15/16 09/16/16 09/16/16 09/16/16 07:00 15:00 23:00 07:00 15:00 23:00 Intake Total 908 ml 642 ml 714 ml 135 ml Output Total 800 ml 575 ml 600 ml 600 ml Balance 108 ml 67 ml 114 ml -465 ml Intake Oral 250 ml IV Total 658 ml 642 ml 714 ml 135 ml Output Urine Total 800 ml 575 ml 600 ml 600 ml # Voids 2 # Bowel Movements 1 Physical Exam GENERAL: Well developed, well nourished. No acute distress. HEENT: C collar in place. CHEST: Lungs clear to auscultation anteriorly. CARDIAC: Regular rate and rhythm without S3, S4, or murmur. Pacer site clean, dry, intact, nontender, no hematoma. ABDOMEN: Soft, nontender, no hepatosplenomegaly. Bowel sounds present. EXTREMITIES: No clubbing, cyanosis, or edema. Imaging Last 48 hours Impressions Chest X-Ray 09/15/16 0000 Signed Impressions: Service Date/Time: Tuesday, September 15, 2016 08:48 - CONCLUSION: No acute disease. Jonny Rosario MD Assessment and Plan Problem List: (1) Status post placement of cardiac pacemaker Assessment and Plan: Stable overnight s/p repositioning of dislodged atrial lead yesterday. Pacer site OK. Pacer re-interrogation today shows stable, good pacing parameters. OK from a cardiac standpoint to go to rehab. (2) Hypertension Assessment and Plan: Elevated BP's. Continue to monitor post CVA. Cont Lisinopril. (3) Hyperlipidemia Assessment and Plan: Good lipid profile this admission. Continue atorvastatin. Code Status full code Discussed Condition With patient Problem Qualifiers (1) Hypertension: Qualified Code: I10 - Essential hypertension (2) Hyperlipidemia: Qualified Code: E78.2 - Mixed hyperlipidemia Edis Lange MD Sep 16, 2016 14:45
[2016-09-16] MEDS ORDERED: VANCOMYCIN INJ 1,000 MG in SODIUM CHLOR 0.9% 250 ML INJ 250 ML IV ONE (17:00)
--- NOTE | 2016-09-16 17:13 | HHI.DS ---
Discharge Summary Admission Date Sep 09, 2016 at 19:51 Admitting Diagnosis Syncope, C2 fracture, intermittent third degree heart block, acute left inferior cerebellar infarct (1) Syncope and collapse ICD Code: R55 Diagnosis: Principal (2) New cerebellar infarct ICD Code: I63.9 (3) C2 cervical fracture ICD Code: S12.100A Diagnosis: Principal (4) Third degree atrioventricular block ICD Code: I44.2 (5) Type 2 diabetes mellitus ICD Code: E11.9 (6) Hyperlipemia ICD Code: E78.5 (7) Hypertension ICD Code: I10 Procedures 09/14/2016 Dual-chamber permanent pacemaker implantation via the right subclavian vein. 09/15/2016 Atrial lead repositioning. Brief History Mr. Doty is a pleasant 76-year-old male with a history of type 2 diabetes mellitus (blood sugars checked at home once a week range 130s to 140s), melanoma , hyperlipidemia, and hypertension who is visiting from [place] and was brought to [facility] in [place] on 09/08/2016 after experiencing a syncopal episode. The patient states he was sitting on a kitchen bar stool drinking coffee when he suddenly became diaphoretic and dizzy. He went to get a wet washcloth to put on the back of his neck and that is lasting he remembers. He was estimated to be unconscious for about 30 seconds. Prior to syncope, he denies chest pain, shortness of breath, and nausea. He also denies any weakness in his legs and arms, blurred vision, or headache. At [facility], he was diagnosed with first-degree AV block, intermittent third-degree AV block, and C2 cervical spine fracture and placed in a hard neck brace. See imaging section for full summary of radiological findings from prior hospitalization. Mr. Doty says this morning, he developed numbness on the left side of his face with inability to open his left thigh wide. 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 The patient denies any prior history of CVA, TIA, or heart disease. The patient's only reported at the time of visit is that his neck brace is not fitting well and is interfering with his ability to open and close his mouth. EKG from [facility] reviewed and shows first-degree AV block Laboratory studies from [facility] show mild elevation in white blood count at 10.1 on 09/08/2016 which was likely secondary to stress response. We'll recheck CBC in a.m. BMP not available for review - will check in a.m. - no mention of electrolyte abnormalities in any of the records. Serial Trop I were within normal parameters. Triglycerides 63, cholesterol 1:30, LDL 69, HDL 48, cholesterol/HDL ratio 2.7. . CBC/BMP: 09/15/16 0328 Significant Findings Laboratory Tests Test 09/15/16 03:28 Chloride Level 109 MEQ/L (98-107) Random Glucose 108 MG/DL (74-106) PE at Discharge GENERAL: This is a well-nourished, well-developed patient, in no apparent distress. NECK: C collar in place. CARDIOVASCULAR: Regular rate and rhythm RESPIRATORY: Clear to auscultation. Breath sounds equal bilaterally. No wheezes , rales, or rhonchi. GASTROINTESTINAL: Abdomen soft, non-tender, nondistended. Normal active bowel sounds MUSCULOSKELETAL: Extremities without clubbing, cyanosis, or edema. NEURO: Alert & Oriented x3 to person, place, time. Moves all ext x4 with 5/5 steng in extremities x 4. Normal cerebellar testing. Hospital Course Mr. Doty is a pleasant 76-year-old male with a history of type 2 diabetes mellitus (blood sugars checked at home once a week range 130s to 140s), melanoma , hyperlipidemia, and hypertension who is visiting from [place] and was brought to [facility] in [place] on 09/08/2016 after experiencing a syncopal episode. The patient states he was sitting on a kitchen bar stool drinking coffee when he suddenly became diaphoretic and dizzy. He went to get a wet washcloth to put on the back of his neck and that is lasting he remembers. He was estimated to be unconscious for about 30 seconds. Prior to syncope, he denies chest pain, shortness of breath, and nausea. He also denies any weakness in his legs and arms, blurred vision, or headache. At [facility], he was diagnosed with first-degree AV block, intermittent third-degree AV block, and C2 cervical spine fracture and placed in a hard neck brace. See imaging section for full summary of radiological findings from prior hospitalization. Mr. Doty says this morning, he developed numbness on the left side of his face with inability to open his left thigh wide. 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 The patient denies any prior history of CVA, TIA, or heart disease. The patient's only reported at the time of visit is that his neck brace is not fitting well and is interfering with his ability to open and close his mouth. EKG from [facility] reviewed and shows first-degree AV block Subsequently evaluated by Neurosurgery, Cardiology. 09/12: Today developed syncope again with pulse 20s. Placed back in bed from chair. Completer AV block vs 2nd degree. Responded to atropine -> NSR with 1st degree block. Start on low dose dopamine. Fully responsive after but memory hazy. 09/13: Remained NSR all night since dopamine initiated. 09/14: Two witnessed episodes of syncope and collapse. Heart block and severe bradycardia well documented. On dopamine for rate support with good blood pressure in the context of recent CVA. PPM today. 09/15: Pacer capture may not be 100%. Will be interrogated today. Stable hemodynamics. Pt Condition on Discharge: Good Discharge Disposition: Rehab Inpatient Discharge Instructions DIET: Follow Instructions for: Heart Healthy Diet Speech Therapy-Diet Recommends: Mechanical Soft Additional Diet Instructions: Glucerna supplement with each meal. Activities you can perform: Regular-No Restrictions Donny Campos MD Sep 16, 2016 17:13
[2016-09-27] MEDS ORDERED: COMMODE 3-IN-11 MIS (15:42)
[2016-09-27] MEDS ORDERED: GETGO ROLLING W1 MI1 (15:42)
[2016-09-27] MEDS ORDERED: WHEEMIS3 (15:42)
[2016-09-30] MEDS ORDERED: HYDR-3516 PO (11:34)
[2016-09-30] MEDS ORDERED: AMBI5TAB PO (11:34)
[2016-09-30] MEDS ORDERED: POLY17S PO (11:43)
[2016-09-30] MEDS ORDERED: FAMO20TA2 PO (11:43)
[2016-09-30] MEDS ORDERED: ARTI3.5O LEFT EYE (11:43)
[2016-09-30] MEDS ORDERED: ASPI325T PO (11:43)
[2016-09-30] MEDS ORDERED: ATOR40TA16 PO (11:43)
[2016-09-30] MEDS ORDERED: LISI10TA3 PO (11:43)
[2016-09-30] MEDS ORDERED: Artificial Tears Opth Soln LEFT EYE (11:48)
== END 2016-09-16 16:08 | DRG 242 ==
LOC: HCIS 19:51 → N03A 09-10 11:42
PROVIDERS: ADMIT Hospitalist; ATTEND Hospitalist
PROC: 02HK3JZ Insertion of Pacemaker Lead into Right Ventricle, Percutaneous Approach (ICD-10-PCS; 2016-09-14)
PROC: 02H63JZ Insertion of Pacemaker Lead into Right Atrium, Percutaneous Approach (ICD-10-PCS; 2016-09-14)
PROC: 0JH606Z Insertion of Pacemaker, Dual Chamber into Chest Subcutaneous Tissue and Fascia, Open Approach (ICD-10-PCS; principal; 2016-09-14 18:00)
PROC: 02WA3MZ Revision of Cardiac Lead in Heart, Percutaneous Approach (ICD-10-PCS; 2016-09-15)
PROC: 4B02XSZ Measurement of Cardiac Pacemaker, External Approach (ICD-10-PCS; 2016-09-15)
DX: I44.2 Atrioventricular block, complete (principal); I63.012 Cerebral infarction due to thrombosis of left vertebral artery; S12.101A Unspecified nondisplaced fracture of second cervical vertebra, initial encounter for closed fracture; E11.9 Type 2 diabetes mellitus without complications; T82.110A Breakdown (mechanical) of cardiac electrode, initial encounter; R00.1 Bradycardia, unspecified; R29.810 Facial weakness; W08.XXXA Fall from other furniture, initial encounter; R61 Generalized hyperhidrosis; H55.00 Unspecified nystagmus; Y93.89 Activity, other specified; Y92.000 Kitchen of unspecified non-institutional (private) residence as the place of occurrence of the external cause; Y99.9 Unspecified external cause status; I10 Essential (primary) hypertension; E78.2 Mixed hyperlipidemia; Z85.820 Personal history of malignant melanoma of skin; Z87.891 Personal history of nicotine dependence; M47.9 Spondylosis, unspecified; Z79.84 Long term (current) use of oral hypoglycemic drugs; Z80.2 Family history of malignant neoplasm of other respiratory and intrathoracic organs; Z80.8 Family history of malignant neoplasm of other organs or systems; Y71.2 Prosthetic and other implants, materials and accessory cardiovascular devices associated with adverse incidents; G47.9 Sleep disorder, unspecified
CPT/HCPCS: 33208; 33220; 70450; 70498; 71010; 72125; 76937; 80048; 80061; 82948; 83735; 84100; 85025; 87641; 93005; C1786; C1898; J0461; J0690; J1265; J1815; J2250; J3010; J3370; J7030; J7050; L0172; Q9967